=== PATIENT | female | born 1980 | race Caucasian/White ===

== ENCOUNTER 2017-06-16 22:34 | Inpatient (IN) | payer MEDICAID ==
--- NOTE | 2017-06-16 23:01 | ED Physician Chart ---
ED Chief Complaint/HPI - Patient Information Date Seen:: 06/16/17 Time Seen:: 22:53 Chief Complaint:: Infected kidney stone History of Present Illness:: 36 yo female was hospitalized for infected left kidney stones at [facility] receiving IV antibiotics (per patient, Rocephin) qd for 4 days. However , patient left AMA this afternoon because she wanted to take care of her dog at home. She presented to ER to try to receive additional treatment with antibiotics. Her initial symptoms of fever, b/l flank pain, urinary frequency, urgency and burning sensation had improved after the treatment. She currently still has urinary burning sensation and left flank pain. Allergies:: Allergies Allergy/AdvReac Type Severity Reaction Status Date / Time Sulfa (Sulfonamide Allergy Verified 08/14/15 00:06 Antibiotics) Vitals:: Vital Signs - 8 hr 06/16/17 22:40 Temp 98.6 F HR 100 RR 18 BP 140/95 O2 Sat % 98 ED Review of Systems - Review of Systems General/Constitutional: Fever, Chills Skin: No skin lesions Head: Headache Eyes: No pain ENT: No nasal drainage Neck: No neck pain Cardio Vascular: No chest pain Pulmonary: No SOB GI: Nausea, No vomiting G/U: Dysuria, Frequency Musculoskeletal: No bone or joint pain Neurological: No focal symptoms ED Past Medical History - Past Medical History Past Medical History: CAD Social History: Smoker, No Alcohol, Illicit Drug Use (marijuana) Surgical History: , other (left ureter stent for kidney stones, lithotripsy) Family Medical History - Family Member Mother History Unknown: Yes Ethnicity: Non- Living Status: Still Living Hx Family Cancer: No Hx Family Coronary Artery Disease: No Hx Family Congestive Heart Failure: No Hx Family Hypertension: No Hx Family Stroke: No Hx Family Diabetes: No Hx Family Seizures: No Hx Family Dementia: No Hx Family AIDS: No Hx Family HIV: No Hx Family COPD: No Hx Family Hepatitis: No Hx Family Psychiatric Problems: No Hx Family Tuberculosis: No ED Physical Exam - Physical Examination General/Constitutional: Awake Head: Atraumatic Eyes: PERRL Skin: No skin lesions ENMT: Nasal exam nl Neck: No nuchal rigidity Respiratory: No Wheeze/Rhonchi/Rales Cardio Vascular: RRR, No murmur, gallop, rubs, NL S1 S2 Other GI comments:: LLQ tenderness Other comments:: B/L CVA tenderness Neuro/Psych: No focal deficits ED Labs/Radiology/EKG Results - Lab Results Results: Laboratory Last Values WBC 7.9 Th/cmm (4.8-10.8) 06/16/17 23:38 RBC 4.09 Mil/cmm (3.80-5.10) 06/16/17 23:38 Hgb 12.3 gm/dL (12-16) 06/16/17 23:38 Hct 36.2 % (41.0-60) L 06/16/17 23:38 MCV 88.6 fl (81-100) 06/16/17 23:38 MCH 30.2 pg (27.0-31.0) 06/16/17 23:38 MCHC Differential 34.0 pg (28.0-36.0) 06/16/17 23:38 RDW 12.3 % (11.5-20.0) 06/16/17 23:38 Plt Count 227 Th/cmm (150-400) 06/16/17 23:38 MPV 7.5 fl 06/16/17 23:38 Neutrophils % 78.9 % (40.0-80.0) 06/16/17 23:38 Lymphocytes % 14.8 % (20.0-50.0) L 06/16/17 23:38 Monocytes % 4.9 % (2.0-10.0) 06/16/17 23:38 Eosinophils % 1.1 % (0.0-5.0) 06/16/17 23:38 Basophils % 0.3 % (0.0-2.0) 06/16/17 23:38 PT 8.9 SECONDS (9.5-11.5) L 06/16/17 23:38 INR 0.90 (0.5-1.4) 06/16/17 23:38 PTT (Actin FS) 24.6 SECONDS (26.0-38.0) L 06/16/17 23:38 Sodium 133 mEq/L (136-145) L 06/16/17 23:38 Potassium 4.3 mEq/L (3.5-5.1) 06/16/17 23:38 Chloride 102 mEq/L (98-107) 06/16/17 23:38 BUN 14 mg/dL (7-25) 06/16/17 23:38 Creatinine 0.9 mg/dL (0.6-1.2) 06/16/17 23:38 Est GFR ( Amer) > 60.0 ml/min (>90) 06/16/17 23:38 Est GFR (Non-Af Amer) > 60.0 ml/min 06/16/17 23:38 BUN/Creatinine Ratio 15.6 06/16/17 23:38 Glucose 95 mg/dL (70-105) 06/16/17 23:38 Calcium 10.0 mg/dL (8.6-10.3) 06/16/17 23:38 Total Bilirubin 0.2 mg/dL (0.3-1.0) L 06/16/17 23:38 AST 42 U/L (13-39) H 06/16/17 23:38 ALT 53 U/L (7-52) H 06/16/17 23:38 Alkaline Phosphatase 48 U/L (34-104) 06/16/17 23:38 Total Protein 7.6 gm/dL (6.0-8.3) 06/16/17 23:38 Albumin 4.1 gm/dL (3.7-5.3) 06/16/17 23:38 Globulin 3.5 gm/dL 06/16/17 23:38 Albumin/Globulin Ratio 1.2 (1.0-1.8) 06/16/17 23:38 Urine Source RANDOM 06/16/17 23:30 Urine Color YELLOW 06/16/17 23:30 Urine Clarity HAZY (CLEAR) 06/16/17 23:30 Urine pH 7.0 (4.6 - 8.0) 06/16/17 23:[address] [place] <= 1.005 (1.005-1.030) 06/16/17 23:30 Urine Protein NEGATIVE mg/dL (NEGATIVE) 06/16/17 23:30 Urine Glucose (UA) NEGATIVE mg/dL (NEGATIVE) 06/16/17 23:30 Urine Ketones NEGATIVE mg/dL (NEGATIVE) 06/16/17 23:30 Urine Blood SMALL (NEGATIVE) H 06/16/17 23:30 Urine Nitrate NEGATIVE (NEGATIVE) 06/16/17 23:30 Urine Bilirubin NEGATIVE (NEGATIVE) 04/24/18 23:30 Urine Urobilinogen 0.2 E.U./dL (0.2 - 1.0) 06/16/17 23:30 Ur Leukocyte Esterase LARGE (NEGATIVE) H 06/16/17 23:30 Urine RBC 0-2 /hpf (0-5) 06/16/17 23:30 Urine WBC 10-25 /hpf (0-5) H 06/16/17 23:30 Ur Epithelial Cells MODERATE /lpf (FEW) 06/16/17 23:30 Urine Bacteria FEW /hpf (NONE SEEN) 06/16/17 23:30 Urine Opiates Screen POSITIVE (NEGATIVE) H 06/16/17 23:30 Urine Methadone Screen NEGATIVE (NEGATIVE) 06/16/17 23:30 Ur Barbiturates Screen NEGATIVE (NEGATIVE) 06/16/17 23:30 Ur Tricyclics Screen NEGATIVE (NEGATIVE) 06/16/17 23:30 Ur Phencyclidine Scrn NEGATIVE (NEGATIVE) 06/16/17 23:30 Amphetamines Screen POSITIVE (NEGATIVE) H 06/16/17 23:30 U Methamphetamines Scrn POSITIVE (NEGATIVE) H 06/16/17 23:30 U Benzodiazepines Scrn NEGATIVE (NEGATIVE) 06/16/17 23:30 U Cocaine Metab Screen NEGATIVE (NEGATIVE) 06/16/17 23:30 U Cannabinoids Screen POSITIVE (NEGATIVE) H 06/16/17 23:30 - Radiology Results Results: Renal u/s: left kidney multiple stones, largest 1/5cm and multiple cysts, largest 3cm, hydronephrosis, bladder wall thickness indicating cystitis. ED Assessment - Assessment General Assessment: Left kidney stones Pyelonephritis Cystitis Substance abuse Assessment/Comments:: CBC, CMP, UA, urine drug screen Renal u/s NS 1L IV bolus Levaquin 750mg IV x 1 Admit to med surg ED Septic Shock - . Is Septic Shock (SBP<90, OR Lactate>4 mmol\L) present?: No - <6hrs of presentation: Vital Signs: Vital Signs - 8 hr 06/16/17 22:40 Temp 98.6 F HR 100 RR 18 BP 140/95 O2 Sat % 98 ED Reassessment (Disposition) - Reassessment Reassessment Condition:: Improved - Patient Disposition Discharge/Transfer:: Acute Care w/in this hosp Admitting Medical Physician:: Juan David Haq ED Discharge Plan - Patient Disposition Admit/Discharge/Transfer: Acute Care w/in this hosp
[2017-06-16 23:45] LABS: % BASOPHILS 0.3 % (0.0-2.0); % EOSINOPHILS 1.1 % (0.0-5.0); % LYMPHOCYTES 14.8 % (20.0-50.0); % MONOCYTES 4.9 % (2.0-10.0); % NEUTROPHILS 78.9 % (40.0-80.0); EOSINOPHILE ABSOLUTE 0.1 Th/cmm (0.1-0.4); HEMATOCRIT 36.2 % (41.0-60); HEMOGLOBIN 12.3 gm/dL (12-16); LYMPHOCYTE ABSOLUTE 1.2 Th/cmm (1.5-3.0); MEAN CELL VOLUME 88.6 fl (81-100); MEAN CORPUSCULAR HEMOGLOBIN 30.2 pg (27.0-31.0); MEAN PLATELET VOLUME 7.5 fl; MONOCYTE ABSOLUTE 0.4 Th/cmm (0.3-1.0); NEUTROPHILE ABSOLUTE 6.2 Th/cmm (1.8-8.0); PLATELET COUNT 227 Th/cmm (150-400); RED BLOOD COUNT 4.09 Mil/cmm (3.80-5.10); RED CELL DISTRIBUTION WIDTH 12.3 % (11.5-20.0); WHITE BLOOD COUNT 7.9 Th/cmm (4.8-10.8)
[2017-06-16 23:47] LABS: URINE MICROSCOPIC INDICATED? YES; URINE SOURCE RANDOM
[2017-06-16 23:52] LABS: URINE BILIRUBIN NEGATIVE (NEGATIVE); URINE BLOOD SMALL (NEGATIVE); URINE GLUCOSE (UA) NEGATIVE (NEGATIVE); URINE KETONE NEGATIVE (NEGATIVE); URINE LEUKOCYTE ESTERASE LARGE (NEGATIVE); URINE NITRATE NEGATIVE (NEGATIVE); URINE PROTEIN NEGATIVE (NEGATIVE); URINE UROBILINOGEN 0.2 E.U./dL (0.2 - 1.0)
[2017-06-16 23:56] LABS: URINE CLARITY HAZY (CLEAR); URINE COLOR YELLOW
[2017-06-17] LABS: PROTHROMBIN TIME (TEST) 8.9 SECONDS (9.5-11.5)
[2017-06-17 00:02] LABS: ALB/GLOB RATIO 1.2 (1.0-1.8); ALBUMIN 4.1 gm/dL (3.7-5.3); ALKALINE PHOSPHATASE 48 U/L (34-104); BILIRUBIN,TOTAL 0.2 mg/dL (0.3-1.0); BUN - UREA NITROGEN 14 mg/dL (7-25); CHLORIDE 102 mEq/L (98-107); CREATININE - SERUM 0.9 mg/dL (0.6-1.2); GFR AFRICAN-AMERICAN > 60.0 ml/min (>90); GFR NON AFRICAN-AMERICAN > 60.0 ml/min; GLUCOSE 95 mg/dL (70-105); POTASSIUM SERUM 4.3 mEq/L (3.5-5.1); SGOT 42 U/L (13-39); SGPT/ALT 53 U/L (7-52); SODIUM SERUM 133 mEq/L (136-145); TOTAL PROTEIN,SERUM 7.6 gm/dL (6.0-8.3)
[2017-06-17 00:03] LABS: URINE BACTERIA FEW /hpf (NONE SEEN); URINE EPITHELIAL CELLS MODERATE /lpf (FEW); URINE RBC 0-2 /hpf (0-5)
[2017-06-17 00:05] LABS: INR 0.9 (0.5-1.4)
[2017-06-17 00:34] LABS: AMPHETAMINE URINE POSITIVE (NEGATIVE); BARBITURATES URINE NEGATIVE (NEGATIVE); COCAINE METABOLITE QUAL URINE NEGATIVE (NEGATIVE); PHENCYCLIDINE (PCP) URINE NEGATIVE (NEGATIVE)
[2017-06-17 00:35] LABS: BENZODIAZEPINES QUAL URINE NEGATIVE (NEGATIVE); CANNABINOID THC POSITIVE (NEGATIVE); METHADONE URINE NEGATIVE (NEGATIVE); METHAMPHETAMINES QUAL URINE POSITIVE (NEGATIVE); OPIATES (MORPHINE) QUAL. URINE POSITIVE (NEGATIVE); TRICYCLICS (TCA) QUAL. URINE NEGATIVE (NEGATIVE)
[2017-06-17] MEDS ORDERED: Sodium Chloride 0.9% 1,000 ML IV ONE (00:41)
[2017-06-17] MEDS ORDERED: Levofloxacin 750mg/150mL 750 MG/150 ML BAG IV ONE ×2 (01:06→01:13)
[2017-06-17 02:02] LABS: ANION GAP 13.4 (7.0-16.0); CARBON DIOXIDE 21.9 mEq/L (21.0-31.0)
[2017-06-17] MEDS ORDERED: D5-0.45NS 1,000 ML IV SCH (03:45)
[2017-06-17] MEDS ORDERED: Morphine Sulfate 4 mg/mL 1mL Syr IV PRN (04:15)
[2017-06-17] MEDS: cefTRIAXone 1 GM in Sodium Chloride 0.9% 50 ML IV SCH (04:47)
--- NOTE | 2017-06-17 07:49 | Diagnostic Imaging Report ---
Renal ultrasound HISTORY: Hydronephrosis. COMPARISON: None Technique: Sonography of the kidneys and urinary bladder was performed in multiple planes. FINDINGS: The right kidney measures 13.1 x 4.6 cm. No evidence of focal lesions or hydronephrosis. The left kidney measures 11.4 x 4.5 cm. There is suggestion of left hydronephrosis and possible left-sided parapelvic cysts. Left renal echogenic foci are noted. There is mild urinary bladder wall thickening. No evidence of elevated postresidual bladder davey. IMPRESSION: Mild to moderate left hydronephrosis suspected with possible additional left parapelvic cysts. Recommend further assessment with CT exam. Left renal stone suspected. Again CT would further clarify. Mild prominence of the urinary bladder wall, inflammatory process cannot be excluded.
[2017-06-17 10:32] LABS: % EOSINOPHILS 3.2 % (0.0-5.0); % LYMPHOCYTES 21.5 % (20.0-50.0); % MONOCYTES 8.3 % (2.0-10.0); BASOPHILE ABSOLUTE 0.1 Th/cumm (0-0.2); EOSINOPHILE ABSOLUTE 0.2 Th/cmm (0.1-0.4); HEMATOCRIT 37.7 % (41.0-60); HEMOGLOBIN 12.8 gm/dL (12-16); LYMPHOCYTE ABSOLUTE 1.2 Th/cmm (1.5-3.0); MEAN CELL VOLUME 87.8 fl (81-100); MEAN CORPUSCULAR HEMOGLOBIN 29.8 pg (27.0-31.0); MEAN CORPUSCULAR HGB CONC 33.9 pg (28.0-36.0); MEAN PLATELET VOLUME 7.4 fl; MONOCYTE ABSOLUTE 0.4 Th/cmm (0.3-1.0); NEUTROPHILE ABSOLUTE 3.5 Th/cmm (1.8-8.0); PLATELET COUNT 236 Th/cmm (150-400); RED BLOOD COUNT 4.29 Mil/cmm (3.80-5.10); RED CELL DISTRIBUTION WIDTH 12.5 % (11.5-20.0); WHITE BLOOD COUNT 5.4 Th/cmm (4.8-10.8)
[2017-06-17 10:46] LABS: INR 0.93 (0.5-1.4); PROTHROMBIN TIME (TEST) 9.7 SECONDS (9.5-11.5)
--- NOTE | 2017-06-17 12:09 | Diagnostic Imaging Report ---
CHEST X-RAY: AP view INDICATION: pain COMPARISON: None FINDINGS: There is no focal consolidation or pleural effusions The heart is normal in size. The osseous structures demonstrate no acute abnormalities. IMPRESSION: No acute cardiopulmonary disease.
--- NOTE | 2017-06-17 12:10 | Diagnostic Imaging Report ---
KUB single view HISTORY: Left kidney stones COMPARISON: Renal ultrasound 06/16/2017 FINDINGS: Multiple calcifications are seen along the left upper quadrant. There is extensive stool throughout the colon with gas-filled loops of bowel. The osseous structures are intact. IMPRESSION: Multiple left upper quadrant calcifications most front office representative of extensive left-sided kidney stones. Consider further assessment of these findings with CT examination Copious stool and likely constipation.
--- NOTE | 2017-06-17 13:20 | Consultation ---
DATE OF CONSULTATION: 06/17/2017 UROLOGY CONSULTATION HISTORY OF PRESENT ILLNESS: The patient is a 36-year-old, admitted through the Emergency Room for left flank pain and previous history of fever, frequency and urgency, treated at [facility] for 4 days as an inpatient. She left that hospital to take care for her dog and then came back here for ongoing treatment. She continued to have some dysuria, but no nausea, vomiting, or fever after admission here. She has had kidney stones since age 9 according to her for which she has had multiple lithotripsies and stent placements. She was also seen at [facility] prior to [facility] from where she was transferred to [facility] for insurance purposes. PAST SURGICAL HISTORY: C-sections besides lithotripsies that she cannot remember the details about. HOME MEDICATIONS: Claims to take nothing for blood pressure, diabetes, or any other significant medical problems. She was taking amoxicillin and doxycycline and Vicodin given from the other hospital for pain and infection control. ALLERGIES: SULFA. REVIEW OF SYSTEMS: Fevers have subsided. Nausea, vomiting also gone. Flank pain persists. No diarrhea or vomiting. No chest pain, coughing, or shortness of breath. Denied sore throat. Burning in the urine remains without any hematuria. No skin or joint problems. SOCIAL HISTORY: She is a smoker, uses marijuana at home. Urine screen shows multiple drugs including amphetamines. PHYSICAL EXAMINATION: GENERAL: On exam, she is awake, alert, oriented. VITAL SIGNS: Temperature 97.5, heart rate 93, blood pressure 136/80. HEAD AND NECK: Normocephalic. Trachea central. Pupils equal and reactive. No jaundice. Thyroid and lymph nodes not palpable. Carotid bruit absent. CHEST: Symmetrical. LUNGS: Clear. No rales or rhonchi. HEART: Sounds normal in sinus rhythm, no murmur. ABDOMEN: Soft, mildly tender in the left upper quadrant and left flank on percussion. No masses or hernia. EXTREMITIES: No edema or lymphadenopathy. NEUROLOGIC: Nonfocal. Moves all 4 limbs. LABS: Urine drug screen positive for opiates, amphetamines, and cannabinoids. Urinalysis showed large amount of leukocyte esterase, 10-25 white cells, moderate amount of epithelial cells. Chemistry: Sodium 133, BUN 14, creatinine 0.9. AST and ALT mildly elevated only 42 and 53. PT and PTT normal. White count 7.9, hemoglobin 12.3, and platelets 227. Ultrasound of the kidneys shows multiple stones in the left kidney with [id number] hydronephrosis. Thus, parapelvic cysts as well, which may be confused with hydronephrosis at times. IMPRESSION: 1. Chronic stone disease. 2. Acute onset with possible obstruction from stone that is passing and is held up in the ureter. 3. Urinary tract infection. 4. Possible pyelonephritis. PLAN: Aggressive hydration, Flomax, Lasix, ambulation, review of records from [facility] and possibly a stent insertion if indicated. Meanwhile, she continues on antibiotics, namely ceftriaxone and Levaquin. [facility]# [id number]
[2017-06-17] MEDS ORDERED: HYDROmorphone 1 mg/mL 1mL Syr IVP PRN (14:24)
[2017-06-17] MEDS ORDERED: HYDROmorphone 2 mg/mL 1mL Vial IVP PRN (15:36)
[2017-06-17] MEDS: HYDROmorphone 2 mg/mL 1mL Vial IVP PRN (16:18)
--- NOTE | 2017-06-17 22:23 | History & Physical ---
ADMIT DATE: 06/17/2017 HISTORY OF PRESENT ILLNESS: The patient is 36-year-old female who came to the Emergency Room complaining of severe left flank pain, fever, frequency of urination, and was treated earlier at [facility] 4 days ago as an inpatient. The patient was sent home and the patient had dysuria and the patient was found to have kidney stones and was admitted. The patient has had C-sections in the past and lithotripsies, she cannot remember. HOME MEDICATION: See the medication reconciliation sheet. ALLERGIES: To SULFA. REVIEW OF SYSTEMS: Basically has fever, nausea, vomiting, and severe left flank pain. SOCIAL HISTORY: Smoker, uses marijuana. PHYSICAL EXAMINATION: HEAD: Normal. ENT: Normal. NECK: Supple, nontender. LUNGS: Bilaterally clear. CARDIOVASCULAR SYSTEM: S1, S2 heard. ABDOMEN: Soft. Bowel sounds are heard. CENTRAL NERVOUS SYSTEM: Grossly normal. IMAGING: Ultrasound showed [id number] hydronephrosis. DIAGNOSES: Chronic kidney disease, chronic stone disease with renal stones, kidney stones, urinary tract infection, pyelonephritis, status post . PLAN: The patient is being admitted and I will have Dr. Gould, Urology, to consult, and I will follow the patient. JOB# [id number]
[2017-06-18] MEDS: cefTRIAXone 1 GM in Sodium Chloride 0.9% 50 ML IV SCH (05:17)
[2017-06-18 06:13] LABS: % BASOPHILS 1.1 % (0.0-2.0); % EOSINOPHILS 4.8 % (0.0-5.0); % LYMPHOCYTES 29.5 % (20.0-50.0); % MONOCYTES 6.1 % (2.0-10.0); % NEUTROPHILS 58.5 % (40.0-80.0); BASOPHILE ABSOLUTE 0.1 Th/cumm (0-0.2); EOSINOPHILE ABSOLUTE 0.3 Th/cmm (0.1-0.4); HEMATOCRIT 38.2 % (41.0-60); HEMOGLOBIN 12.6 gm/dL (12-16); LYMPHOCYTE ABSOLUTE 1.7 Th/cmm (1.5-3.0); MEAN CELL VOLUME 89.2 fl (81-100); MEAN CORPUSCULAR HEMOGLOBIN 29.4 pg (27.0-31.0); MEAN PLATELET VOLUME 7.4 fl; MONOCYTE ABSOLUTE 0.4 Th/cmm (0.3-1.0); NEUTROPHILE ABSOLUTE 3.3 Th/cmm (1.8-8.0); PLATELET COUNT 235 Th/cmm (150-400); RED BLOOD COUNT 4.29 Mil/cmm (3.80-5.10); RED CELL DISTRIBUTION WIDTH 12.2 % (11.5-20.0); WHITE BLOOD COUNT 5.8 Th/cmm (4.8-10.8)
[2017-06-18 06:19] LABS: BUN - UREA NITROGEN 14 mg/dL (7-25); CALCIUM SERUM 9.4 mg/dL (8.6-10.3); CARBON DIOXIDE 25.1 mEq/L (21.0-31.0); CHLORIDE 103 mEq/L (98-107); CREATININE - SERUM 0.8 mg/dL (0.6-1.2); GFR AFRICAN-AMERICAN > 60.0 ml/min (>90); GFR NON AFRICAN-AMERICAN > 60.0 ml/min; GLUCOSE 99 mg/dL (70-105); POTASSIUM SERUM 4.1 mEq/L (3.5-5.1); SODIUM SERUM 133 mEq/L (136-145)
[2017-06-18 06:20] LABS: INR 0.91 (0.5-1.4); PROTHROMBIN TIME (TEST) 9.5 SECONDS (9.5-11.5)
[2017-06-18] MEDS ORDERED: IOHEXOL 300mgI/mL 50 ML VIAL ONE (07:18)
[2017-06-18] MEDS: HYDROmorphone 2 mg/mL 1mL Vial IVP PRN ×4 (07:56→21:53)
--- NOTE | 2017-06-18 08:29 | Diagnostic Imaging Report ---
CHEST X-RAY: AP view INDICATION: Shortness of breath COMPARISON: 06/17/2017 FINDINGS: There is no focal consolidation or pleural effusions The heart is normal in size. The osseous structures demonstrate no acute abnormalities. IMPRESSION: No acute cardiopulmonary disease.
--- NOTE | 2017-06-18 08:50 | General Progress Note ---
Subjective - Review of Systems Events since last encounter: c/o flank pain in no distress Objective - Results Result Diagrams: 06/18/17 05:46 06/18/17 05:46 Recent Labs: Laboratory Last Values WBC 5.8 Th/cmm (4.8-10.8) 06/18/17 05:46 RBC 4.29 Mil/cmm (3.80-5.10) 06/18/17 05:46 Hgb 12.6 gm/dL (12-16) 06/18/17 05:46 Hct 38.2 % (41.0-60) L 06/18/17 05:46 MCV 89.2 fl (81-100) 06/18/17 05:46 MCH 29.4 pg (27.0-31.0) 06/18/17 05:46 MCHC Differential 33.0 pg (28.0-36.0) 06/18/17 05:46 RDW 12.2 % (11.5-20.0) 06/18/17 05:46 Plt Count 235 Th/cmm (150-400) 06/18/17 05:46 MPV 7.4 fl 06/18/17 05:46 Neutrophils % 58.5 % (40.0-80.0) 06/18/17 05:46 Lymphocytes % 29.5 % (20.0-50.0) 06/18/17 05:46 Monocytes % 6.1 % (2.0-10.0) 06/18/17 05:46 Eosinophils % 4.8 % (0.0-5.0) 06/18/17 05:46 Basophils % 1.1 % (0.0-2.0) 06/18/17 05:46 PT 9.5 SECONDS (9.5-11.5) 06/18/17 05:46 INR 0.91 (0.5-1.4) 06/18/17 05:46 PTT (Actin FS) 25.6 SECONDS (26.0-38.0) L 06/17/17 10:22 Sodium 133 mEq/L (136-145) L 06/18/17 05:46 Potassium 4.1 mEq/L (3.5-5.1) 06/18/17 05:46 Chloride 103 mEq/L (98-107) 06/18/17 05:46 Carbon Dioxide 25.1 mEq/L (21.0-31.0) 06/18/17 05:46 Anion Gap 9.0 (7.0-16.0) 06/18/17 05:46 BUN 14 mg/dL (7-25) 06/18/17 05:46 Creatinine 0.8 mg/dL (0.6-1.2) 06/18/17 05:46 Est GFR ( Amer) > 60.0 ml/min (>90) 06/18/17 05:46 Est GFR (Non-Af Amer) > 60.0 ml/min 06/18/17 05:46 BUN/Creatinine Ratio 17.5 06/18/17 05:46 Glucose 99 mg/dL (70-105) 06/18/17 05:46 Calcium 9.4 mg/dL (8.6-10.3) 06/18/17 05:46 Total Bilirubin 0.2 mg/dL (0.3-1.0) L 06/16/17 23:38 AST 42 U/L (13-39) H 06/16/17 23:38 ALT 53 U/L (7-52) H 06/16/17 23:38 Alkaline Phosphatase 48 U/L (34-104) 06/16/17 23:38 B-Natriuretic Peptide 46.5 pg/mL (5.0-100.0) 06/17/17 10:22 Total Protein 7.6 gm/dL (6.0-8.3) 06/16/17 23:38 Albumin 4.1 gm/dL (3.7-5.3) 06/16/17 23:38 Globulin 3.5 gm/dL 06/16/17 23:38 Albumin/Globulin Ratio 1.2 (1.0-1.8) 06/16/17 23:38 Urine Source RANDOM 06/16/17 23:30 Urine Color YELLOW 06/16/17 23:30 Urine Clarity HAZY (CLEAR) 06/16/17 23:30 Urine pH 7.0 (4.6 - 8.0) 06/16/17 23:30 Ur Specific [place] <= 1.005 (1.005-1.030) 06/16/17 23:30 Urine Protein NEGATIVE mg/dL (NEGATIVE) 06/16/17 23:30 Urine Glucose (UA) NEGATIVE mg/dL (NEGATIVE) 06/16/17 23:30 Urine Ketones NEGATIVE mg/dL (NEGATIVE) 06/16/17 23:30 Urine Blood SMALL (NEGATIVE) H 06/16/17 23:30 Urine Nitrate NEGATIVE (NEGATIVE) 06/16/17 23:30 Urine Bilirubin NEGATIVE (NEGATIVE) 06/16/17 23:30 Urine Urobilinogen 0.2 E.U./dL (0.2 - 1.0) 06/16/17 23:30 Ur Leukocyte Esterase LARGE (NEGATIVE) H 06/16/17 23:30 Urine RBC 0-2 /hpf (0-5) 06/16/17 23:30 Urine WBC 10-25 /hpf (0-5) H 06/16/17 23:30 Ur Epithelial Cells MODERATE /lpf (FEW) 06/16/17 23:30 Urine Bacteria FEW /hpf (NONE SEEN) 06/16/17 23:30 Urine Test NEGATIVE 06/17/17 10:58 Urine Opiates Screen POSITIVE (NEGATIVE) H 06/16/17 23:30 Urine Methadone Screen NEGATIVE (NEGATIVE) 06/16/17 23:30 Ur Barbiturates Screen NEGATIVE (NEGATIVE) 06/16/17 23:30 Ur Tricyclics Screen NEGATIVE (NEGATIVE) 06/16/17 23:30 Ur Phencyclidine Scrn NEGATIVE (NEGATIVE) 06/16/17 23:30 Amphetamines Screen POSITIVE (NEGATIVE) H 06/16/17 23:30 U Methamphetamines Scrn POSITIVE (NEGATIVE) H 06/16/17 23:30 U Benzodiazepines Scrn NEGATIVE (NEGATIVE) 06/16/17 23:30 U Cocaine Metab Screen NEGATIVE (NEGATIVE) 06/16/17 23:30 U Cannabinoids Screen POSITIVE (NEGATIVE) H 06/16/17 23:30 - Physical Exam Vitals and I&O: Vital Signs Temp 97.6 F 06/18/17 04:00 Pulse 88 06/18/17 04:00 Resp 17 06/18/17 04:00 BP 122/78 06/18/17 04:00 Pulse Ox 100 06/18/17 04:00 Intake & Output 06/17/17 06/18/17 06/18/17 18:59 06:59 18:59 Intake Total 1005 Balance 1005 Weight (lbs) 59.165 kg 60.328 kg Intake: Intake, IV Amount 1005 Potassium Chloride 10 meq 1005 In Sodium Chloride 0.45% 1,000 ml @ 175 mls/hr IV .Q5H45M [facility] Rx#: [id number] Other: # Voids 2 4 Weight Source Bedscale Bedscale Active Medications: Current Medications Acetaminophen (Tylenol) 650 mg PO Q4H PRN PRN Reason: Pain or Fever >101 Stop: 08/16/17 03:44 Acetaminophen/Hydrocodone Bitart ([place] 5mg/325mg) 1 tab PO HS PRN PRN Reason: Pain Stop: 08/16/17 21:33 Hydromorphone HCl (Dilaudid) 1 mg IVP Q3HR PRN PRN Reason: Pain (Moderate) Stop: 08/16/17 15:35 Last Admin: 06/18/17 00:05 Dose: 1 mg Hydromorphone HCl (Dilaudid) 2 mg IVP Q3HR PRN PRN Reason: Pain (Severe) Stop: 08/16/17 15:36 Last Admin: 06/18/17 07:56 Dose: 2 mg Ceftriaxone Sodium 1 gm/ (Sodium Chloride) 50 mls @ 100 mls/hr IV Q24HR [facility] Stop: 08/16/17 04:59 Last Admin: 06/18/17 05:17 Dose: 100 mls/hr Potassium Chloride 10 meq/ (Sodium Chloride) 1,005 mls @ 175 mls/hr IV .Q5H45M [facility] Stop: 08/16/17 10:14 Last Admin: 06/18/17 02:08 Dose: 175 mls/hr Ondansetron HCl (Zofran) 4 mg IV Q4H PRN PRN Reason: Nausea / Vomiting Stop: 08/16/17 03:42 Last Admin: 06/18/17 05:56 Dose: 4 mg - Procedures Procedures: Procedures Procedure Code Date DELIVERY 64494 08/16/01 DX PROC FETUS/AMNION NEC 75.35 08/16/01 DX ULTRASOUND-GRAV UTER 88.78 07/29/01 CONTRACT STRESS TEST 49329 08/16/01 MONITORING NOS 75.34 08/14/07 NON-STRESS TEST 58642 08/14/07 INJECT/INFUSE NEC 99.29 12/01/09 LOW CERVICAL 74.1 08/16/01 MATERNITY CARE PROCEDURE 45216 08/16/01 OB US LIMITED FETUS(S) 90188 07/29/01
[2017-06-18] MEDS ORDERED: Propofol **SURGERY USE ONLY** 20 ML IV ONE (10:09)
[2017-06-18] MEDS ORDERED: Lidocaine 2% Vial 20 mL Vial ONE (10:10)
[2017-06-18] MEDS ORDERED: fentaNYL Citrate 100 mcg/2mL Vial ONE (10:45)
[2017-06-18] MEDS ORDERED: fentaNYL Citrate 100 mcg/2mL Vial IVP PRN (11:16)
--- NOTE | 2017-06-18 12:03 | Diagnostic Imaging Report ---
Fluoroscopy was utilized facilitation of cystoscopy and nephroureteral stent procedure. Please refer to the procedure report for complete details. The total fluoroscopic time was 1 minute and 21 seconds.
[2017-06-18] MEDS: Sodium Chloride 0.45% 1,000 ML IV SCH (18:10)
--- NOTE | 2017-06-18 19:53 | Operative Report ---
DATE OF SURGERY: 06/18/2017 PREOPERATIVE DIAGNOSES: Left hydronephrosis with stones and pyelonephritis. POSTOPERATIVE DIAGNOSES: Left hydronephrosis with stones, pyelonephritis and ureteropelvic junction obstruction. SURGEON: Suma Gould MD. NAME OF PROCEDURE: Cystoscopy, left retrograde pyelogram with injection of contrast and fluoroscopy and insertion of double-J stent, size 6 x 22. ANESTHESIA: General. INDICATION: The patient is a 36-year-old with multiple stones in the left kidney that have grown over the last few years and she has had few episodes of pyelonephritis. The most recent one treated initially at [facility] and then [facility] as of last year, presently. CT scan on this admission from [facility] shows increasing stone burden in the left kidney. No stones in the ureter, but hydronephrosis that was confirmed on ultrasound as well. KUB shows a lot of stones in the middle calyx system, like a partial staghorn. The patient has had multiple lithotripsies and stents over the last 20 years. FINDINGS: Cystoscopy is normal. Retrograde shows complete obstruction of the UPJ with a pinpoint opening over 1.5 cm, which is the cause of the hydronephrosis. Kidney is hydronephrotic, probably secondary to the UPJ obstruction. A 6 x 22 stent was placed through this obstructed ureteropelvic junction for drainage and prevention of repeated infections and obstruction. She will require treatment of the stones and UPJ obstruction simultaneously. DESCRIPTION OF PROCEDURE: The patient was brought to the operating room, prepped and draped in the dorsal lithotomy position after general anesthesia was induced. After dilating the urethra, the bladder was examined and a left orifice cannulated with injection of contrast at multiple levels to define the ureter, the UPJ and the kidney as well as possible. Finally, the UPJ obstruction was very well defined and a guidewire was passed through this obstruction without resistance and then a stent over it again without resistance until it was in satisfactory position to complete the procedure without blood loss or complication. [facility]# [id number]
[2017-06-19] MEDS: HYDROmorphone 2 mg/mL 1mL Vial IVP PRN ×5 (03:36→22:47)
[2017-06-19] MEDS: cefTRIAXone 1 GM in Sodium Chloride 0.9% 50 ML IV SCH (04:45)
[2017-06-19] MEDS: Sodium Chloride 0.45% 1,000 ML IV SCH (18:00)
--- NOTE | 2017-06-19 18:29 | General Progress Note ---
Objective - Results Result Diagrams: 06/18/17 05:46 06/18/17 05:46 Recent Labs: Laboratory Last Values WBC 5.8 Th/cmm (4.8-10.8) 06/18/17 05:46 RBC 4.29 Mil/cmm (3.80-5.10) 06/18/17 05:46 Hgb 12.6 gm/dL (12-16) 06/18/17 05:46 Hct 38.2 % (41.0-60) L 06/18/17 05:46 MCV 89.2 fl (81-100) 06/18/17 05:46 MCH 29.4 pg (27.0-31.0) 06/18/17 05:46 MCHC Differential 33.0 pg (28.0-36.0) 06/18/17 05:46 RDW 12.2 % (11.5-20.0) 06/18/17 05:46 Plt Count 235 Th/cmm (150-400) 06/18/17 05:46 MPV 7.4 fl 06/18/17 05:46 Neutrophils % 58.5 % (40.0-80.0) 06/18/17 05:46 Lymphocytes % 29.5 % (20.0-50.0) 06/18/17 05:46 Monocytes % 6.1 % (2.0-10.0) 06/18/17 05:46 Eosinophils % 4.8 % (0.0-5.0) 06/18/17 05:46 Basophils % 1.1 % (0.0-2.0) 06/18/17 05:46 PT 9.5 SECONDS (9.5-11.5) 06/18/17 05:46 INR 0.91 (0.5-1.4) 06/18/17 05:46 PTT (Actin FS) 25.6 SECONDS (26.0-38.0) L 06/17/17 10:22 Sodium 133 mEq/L (136-145) L 06/18/17 05:46 Potassium 4.1 mEq/L (3.5-5.1) 06/18/17 05:46 Chloride 103 mEq/L (98-107) 06/18/17 05:46 Carbon Dioxide 25.1 mEq/L (21.0-31.0) 06/18/17 05:46 Anion Gap 9.0 (7.0-16.0) 06/18/17 05:46 BUN 14 mg/dL (7-25) 06/18/17 05:46 Creatinine 0.8 mg/dL (0.6-1.2) 06/18/17 05:46 Est GFR ( Amer) > 60.0 ml/min (>90) 06/18/17 05:46 Est GFR (Non-Af Amer) > 60.0 ml/min 06/18/17 05:46 BUN/Creatinine Ratio 17.5 06/18/17 05:46 Glucose 99 mg/dL (70-105) 06/18/17 05:46 Calcium 9.4 mg/dL (8.6-10.3) 06/18/17 05:46 Total Bilirubin 0.2 mg/dL (0.3-1.0) L 06/16/17 23:38 AST 42 U/L (13-39) H 06/16/17 23:38 ALT 53 U/L (7-52) H 06/16/17 23:38 Alkaline Phosphatase 48 U/L (34-104) 06/16/17 23:38 B-Natriuretic Peptide 46.5 pg/mL (5.0-100.0) 06/17/17 10:22 Total Protein 7.6 gm/dL (6.0-8.3) 06/16/17 23:38 Albumin 4.1 gm/dL (3.7-5.3) 06/16/17 23:38 Globulin 3.5 gm/dL 06/16/17 23:38 Albumin/Globulin Ratio 1.2 (1.0-1.8) 06/16/17 23:38 Urine Source RANDOM 06/16/17 23:30 Urine Color YELLOW 06/16/17 23:30 Urine Clarity HAZY (CLEAR) 06/16/17 23:30 Urine pH 7.0 (4.6 - 8.0) 06/16/17 23:30 Ur Specific [place] <= 1.005 (1.005-1.030) 06/16/17 23:30 Urine Protein NEGATIVE mg/dL (NEGATIVE) 06/16/17 23:30 Urine Glucose (UA) NEGATIVE mg/dL (NEGATIVE) 06/16/17 23:30 Urine Ketones NEGATIVE mg/dL (NEGATIVE) 06/16/17 23:30 Urine Blood SMALL (NEGATIVE) H 06/16/17 23:30 Urine Nitrate NEGATIVE (NEGATIVE) 06/16/17 23:30 Urine Bilirubin NEGATIVE (NEGATIVE) 06/16/17 23:30 Urine Urobilinogen 0.2 E.U./dL (0.2 - 1.0) 06/16/17 23:30 Ur Leukocyte Esterase LARGE (NEGATIVE) H 06/16/17 23:30 Urine RBC 0-2 /hpf (0-5) 06/16/17 23:30 Urine WBC 10-25 /hpf (0-5) H 06/16/17 23:30 Ur Epithelial Cells MODERATE /lpf (FEW) 06/16/17 23:30 Urine Bacteria FEW /hpf (NONE SEEN) 06/16/17 23:30 Urine Test NEGATIVE 06/17/17 10:58 Urine Opiates Screen POSITIVE (NEGATIVE) H 06/16/17 23:30 Urine Methadone Screen NEGATIVE (NEGATIVE) 06/16/17 23:30 Ur Barbiturates Screen NEGATIVE (NEGATIVE) 06/16/17 23:30 Ur Tricyclics Screen NEGATIVE (NEGATIVE) 06/16/17 23:30 Ur Phencyclidine Scrn NEGATIVE (NEGATIVE) 06/16/17 23:30 Amphetamines Screen POSITIVE (NEGATIVE) H 06/16/17 23:30 U Methamphetamines Scrn POSITIVE (NEGATIVE) H 06/16/17 23:30 U Benzodiazepines Scrn NEGATIVE (NEGATIVE) 06/16/17 23:30 U Cocaine Metab Screen NEGATIVE (NEGATIVE) 06/16/17 23:30 U Cannabinoids Screen POSITIVE (NEGATIVE) H 06/16/17 23:30 - Physical Exam Vitals and I&O: Vital Signs Temp 98.1 F 06/19/17 15:40 Pulse 80 06/19/17 15:40 Resp 19 06/19/17 15:40 BP 122/80 06/19/17 15:40 Pulse Ox 97 06/19/17 15:40 Intake & Output 06/18/17 06/19/17 06/19/17 18:59 06:59 18:59 Intake Total 1005 50 1800 Balance 1005 50 1800 Weight (lbs) 60.328 kg 59.693 kg 59.693 kg Intake: Intake, IV Amount 1005 50 1000 Potassium Chloride 10 meq 1005 In Sodium Chloride 0.45% 1,000 ml @ 175 mls/hr IV .Q5H45M [facility] Rx#: [id number] Sodium Chloride 0.45% 1, 1000 000 ml @ 50 mls/hr IV . Q20H [facility] Rx#:[id number] cefTRIAXone 1 gm In 50 Sodium Chloride 0.9% 50 ml @ 100 mls/hr IV Q24HR [facility] Rx#:[id number] Oral 800 Other: # Voids 1 3 # Bowel Movements 0 Weight Source Bedscale Bedscale Bedscale Active Medications: Current Medications Acetaminophen (Tylenol) 650 mg PO Q4H PRN PRN Reason: Pain or Fever >101 Stop: 08/16/17 03:44 Acetaminophen/Hydrocodone Bitart ([place] 5mg/325mg) 1 tab PO HS PRN PRN Reason: Pain Stop: 08/16/17 21:33 Hydromorphone HCl (Dilaudid) 1 mg IVP Q3HR PRN PRN Reason: Pain (Moderate) Stop: 08/16/17 15:35 Last Admin: 06/18/17 00:05 Dose: 1 mg Hydromorphone HCl (Dilaudid) 2 mg IVP Q3HR PRN PRN Reason: Pain (Severe) Stop: 08/16/17 15:36 Last Admin: 06/19/17 17:57 Dose: 2 mg Ceftriaxone Sodium 1 gm/ (Sodium Chloride) 50 mls @ 100 mls/hr IV Q24HR [facility] Stop: 08/16/17 04:59 Last Infusion: 06/19/17 05:15 Dose: Infused Sodium Chloride (Nacl 0.45%) 1,000 mls @ 50 mls/hr IV .Q20H [facility] Stop: 08/17/17 16:15 Last Admin: 06/19/17 18:00 Dose: 50 mls/hr Mupirocin (Bactroban Oint) 1 appl NS BID [facility] Stop: 06/23/17 09:01 Last Admin: 06/19/17 16:21 Dose: 1 appl Ondansetron HCl (Zofran) 4 mg IV Q4H PRN PRN Reason: Nausea / Vomiting Stop: 08/16/17 03:42 Last Admin: 06/18/17 20:57 Dose: 4 mg - Procedures Procedures: Procedures Procedure Code Date DELIVERY 54053 08/16/01 CYSTOSCOPY 17658 06/17/17 DILATION OF BILATERAL URETERS WITH INTRALUMINAL DEVICE, ENDO [id number] 06/17/17 DX PROC FETUS/AMNION NEC 75.35 08/16/01 DX ULTRASOUND-GRAV UTER 88.78 07/29/01 CONTRACT STRESS TEST 35683 08/16/01 MONITORING NOS 75.34 08/14/07 NON-STRESS TEST 93521 08/14/07 INJECT/INFUSE NEC 99.29 12/01/09 LOW CERVICAL 74.1 08/16/01 MATERNITY CARE PROCEDURE 35122 08/16/01 OB US LIMITED FETUS(S) 76136 07/29/01
--- NOTE | 2017-06-19 21:06 | Progress Notes ---
DATE: 06/19/2017 The patient has pain after the procedure which is somewhat expected from the stent, but is otherwise hemodynamically stable and doing well. 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 This can be done by an open technique or the old fashion way versus a robotically conducted procedure with robotic skills. I discussed this with the showcase maker, who tells me that the patient has an [facility] association of [facility] physicians who will have to give approval for referral to a robotic center or to somebody who can do this procedure wide open technique including myself. The patient is presently stable enough to be discharged, but within 2-4 weeks she should have the definitive procedure to avoid longstanding stent related complications of infection, pain or incrustation, etc. This has been conveyed to the patient and the showcase maker and the nurses. JOB# [id number]
[2017-06-20] MEDS: cefTRIAXone 1 GM in Sodium Chloride 0.9% 50 ML IV SCH (04:59)
[2017-06-20] MEDS: HYDROmorphone 2 mg/mL 1mL Vial IVP PRN ×4 (06:54→20:42)
[2017-06-20] MEDS: Hydrocodone/APAP 5mg/325mg Tab PO PRN (08:38)
--- NOTE | 2017-06-20 13:47 | Progress Notes ---
DATE: 06/20/2017 SUBJECTIVE: The patient was seen in her room. Per the patient, she has some intermittent pain in the surgical sites, but the patient was already cleared by with the urologist postop cystoscopy with left retrograde pyelogram. OBJECTIVE: VITAL SIGNS: Temperature 98, heart rate 71, blood pressure 108/72, respiration of 18, 99% on room air. HEENT: Head is atraumatic and normocephalic. Eyes: Bilateral conjunctivae are clear. Bilateral pupils are equally round and reactive. NECK: Supple. No JVD. CARDIOVASCULAR: S1 and S2, without murmur. PULMONARY: Clear to auscultation. GASTROINTESTINAL: Soft and nontender without guarding. Positive bowel sounds. MUSCULOSKELETAL: No clubbing. No cyanosis noted. ASSESSMENT: 1. Chronic kidney disease. 2. Left hydronephrosis with pyelonephritis, status post cystoscopy and pyelogram. 3. Osteoarthritis. 4. Chronic pain syndrome. PLAN: We will keep the patient inpatient in med-surg unit. Treatment plans were discussed with the patient's nurse. Treatment plans were discussed with Dr. Haq. JOB# [id number]
[2017-06-20] MEDS: Sodium Chloride 0.45% 1,000 ML IV SCH (16:06)
--- NOTE | 2017-06-20 19:44 | Discharge Summary ---
DATE OF DISCHARGE: 06/20/2017 The patient is status post stent placement 2 days ago, but continues to have significant pain requiring opioid narcotics. I have explained to her the need to get off the narcotics for fear of addiction as the stent will have to stay for several days until a definitive operation of the UPJ obstruction in the left kidney. I then explained to her in great detail the problem with the left kidney, requiring either an open or robotic surgery to fix the obstruction and simultaneously remove the large kidney stones to salvage this kidney. This procedure can be done at [facility] or [facility] or [place] where robot is available. Her [facility] insurance association of physicians, I will have to refer her to one of these places to achieve to get this operation done. Meanwhile, she will have to have the stent to protect the kidney. When I tried to make her understand about the need to manage the pain and discomfort with Tylenol or ibuprofen or oxybutynin she got very upset and wants even heavier doses of narcotics to deal with this pain. I am unable to make her understand the problems related to her condition, which is somewhat complicated to deal with and the need for protection against opioid addiction. Hopefully, nurses and other attendings can talk to her and get the process going to get a proper referral for the operation. I can do the same operation by an open technique, but this may not be as noninvasive as a robotic procedure if it can be done. JOB# [id number]
[2017-06-21] MEDS: HYDROmorphone 2 mg/mL 1mL Vial IVP PRN ×3 (00:25→10:22)
[2017-06-21] MEDS: cefTRIAXone 1 GM in Sodium Chloride 0.9% 50 ML IV SCH (05:04)
[2017-06-21] MEDS: Sodium Chloride 0.45% 1,000 ML IV SCH (05:05)
[2017-06-21 06:00] LABS: ANION GAP 9.9 (7.0-16.0); BUN - UREA NITROGEN 18 mg/dL (7-25); CALCIUM SERUM 9.5 mg/dL (8.6-10.3); CARBON DIOXIDE 24.6 mEq/L (21.0-31.0); CHLORIDE 104 mEq/L (98-107); CREATININE - SERUM 0.8 mg/dL (0.6-1.2); GFR AFRICAN-AMERICAN > 60.0 ml/min (>90); GFR NON AFRICAN-AMERICAN > 60.0 ml/min; GLUCOSE 88 mg/dL (70-105); POTASSIUM SERUM 4.5 mEq/L (3.5-5.1); SODIUM SERUM 134 mEq/L (136-145)
--- NOTE | 2017-06-21 13:36 | Infectious Disease Prog Note ---
Infectious Disease Subjective - Review of Systems Service Date: 06/21/17 Subjective: Persistent complaints of the left-sided low back pain. There is no fever. The stent was placed in by Dr. Gould Infectious Disease Objective - Results Result Diagrams: 06/18/17 05:46 06/21/17 05:10 Recent Labs: Laboratory Last Values WBC 5.8 Th/cmm (4.8-10.8) 06/18/17 05:46 RBC 4.29 Mil/cmm (3.80-5.10) 06/18/17 05:46 Hgb 12.6 gm/dL (12-16) 06/18/17 05:46 Hct 38.2 % (41.0-60) L 06/18/17 05:46 MCV 89.2 fl (81-100) 06/18/17 05:46 MCH 29.4 pg (27.0-31.0) 06/18/17 05:46 MCHC Differential 33.0 pg (28.0-36.0) 06/18/17 05:46 RDW 12.2 % (11.5-20.0) 06/18/17 05:46 Plt Count 235 Th/cmm (150-400) 06/18/17 05:46 MPV 7.4 fl 06/18/17 05:46 Neutrophils % 58.5 % (40.0-80.0) 06/18/17 05:46 Lymphocytes % 29.5 % (20.0-50.0) 06/18/17 05:46 Monocytes % 6.1 % (2.0-10.0) 06/18/17 05:46 Eosinophils % 4.8 % (0.0-5.0) 06/18/17 05:46 Basophils % 1.1 % (0.0-2.0) 06/18/17 05:46 PT 9.5 SECONDS (9.5-11.5) 06/18/17 05:46 INR 0.91 (0.5-1.4) 06/18/17 05:46 PTT (Actin FS) 25.6 SECONDS (26.0-38.0) L 06/17/17 10:22 Sodium 134 mEq/L (136-145) L 06/21/17 05:10 Potassium 4.5 mEq/L (3.5-5.1) 06/21/17 05:10 Chloride 104 mEq/L (98-107) 06/21/17 05:10 Carbon Dioxide 24.6 mEq/L (21.0-31.0) 06/21/17 05:10 Anion Gap 9.9 (7.0-16.0) 06/21/17 05:10 BUN 18 mg/dL (7-25) 06/21/17 05:10 Creatinine 0.8 mg/dL (0.6-1.2) 06/21/17 05:10 Est GFR ( Amer) > 60.0 ml/min (>90) 06/21/17 05:10 Est GFR (Non-Af Amer) > 60.0 ml/min 06/21/17 05:10 BUN/Creatinine Ratio 22.5 06/21/17 05:10 Glucose 88 mg/dL (70-105) 06/21/17 05:10 Calcium 9.5 mg/dL (8.6-10.3) 06/21/17 05:10 Total Bilirubin 0.2 mg/dL (0.3-1.0) L 06/16/17 23:38 AST 42 U/L (13-39) H 06/16/17 23:38 ALT 53 U/L (7-52) H 06/16/17 23:38 Alkaline Phosphatase 48 U/L (34-104) 06/16/17 23:38 B-Natriuretic Peptide 46.5 pg/mL (5.0-100.0) 06/17/17 10:22 Total Protein 7.6 gm/dL (6.0-8.3) 06/16/17 23:38 Albumin 4.1 gm/dL (3.7-5.3) 06/16/17 23:38 Globulin 3.5 gm/dL 06/16/17 23:38 Albumin/Globulin Ratio 1.2 (1.0-1.8) 06/16/17 23:38 Urine Source RANDOM 06/16/17 23:30 Urine Color YELLOW 06/16/17 23:30 Urine Clarity HAZY (CLEAR) 06/16/17 23:30 Urine pH 7.0 (4.6 - 8.0) 06/16/17 23:30 Ur Specific [place] <= 1.005 (1.005-1.030) 06/16/17 23:30 Urine Protein NEGATIVE mg/dL (NEGATIVE) 06/16/17 23:30 Urine Glucose (UA) NEGATIVE mg/dL (NEGATIVE) 06/16/17 23:30 Urine Ketones NEGATIVE mg/dL (NEGATIVE) 06/16/17 23:30 Urine Blood SMALL (NEGATIVE) H 06/16/17 23:30 Urine Nitrate NEGATIVE (NEGATIVE) 06/16/17 23:30 Urine Bilirubin NEGATIVE (NEGATIVE) 06/16/17 23:30 Urine Urobilinogen 0.2 E.U./dL (0.2 - 1.0) 06/16/17 23:30 Ur Leukocyte Esterase LARGE (NEGATIVE) H 06/16/17 23:30 Urine RBC 0-2 /hpf (0-5) 06/16/17 23:30 Urine WBC 10-25 /hpf (0-5) H 06/16/17 23:30 Ur Epithelial Cells MODERATE /lpf (FEW) 06/16/17 23:30 Urine Bacteria FEW /hpf (NONE SEEN) 06/16/17 23:30 Urine Test NEGATIVE 06/17/17 10:58 Urine Opiates Screen POSITIVE (NEGATIVE) H 06/16/17 23:30 Urine Methadone Screen NEGATIVE (NEGATIVE) 06/16/17 23:30 Ur Barbiturates Screen NEGATIVE (NEGATIVE) 06/16/17 23:30 Ur Tricyclics Screen NEGATIVE (NEGATIVE) 06/16/17 23:30 Ur Phencyclidine Scrn NEGATIVE (NEGATIVE) 06/16/17 23:30 Amphetamines Screen POSITIVE (NEGATIVE) H 06/16/17 23:30 U Methamphetamines Scrn POSITIVE (NEGATIVE) H 06/16/17 23:30 U Benzodiazepines Scrn NEGATIVE (NEGATIVE) 06/16/17 23:30 U Cocaine Metab Screen NEGATIVE (NEGATIVE) 06/16/17 23:30 U Cannabinoids Screen POSITIVE (NEGATIVE) H 06/16/17 23:30 - Physical Exam Vitals and I&O: Vital Signs Temp 97.2 F 06/21/17 12:00 Pulse 73 06/21/17 12:00 Resp 18 06/21/17 12:00 BP 119/72 06/21/17 12:00 Pulse Ox 100 06/21/17 12:00 Intake & Output 06/20/17 06/21/17 06/21/17 18:59 06:59 18:59 Intake Total 1000 849.167 Balance 1000 849.167 Weight (lbs) 59.874 kg Intake: Intake, IV Amount 1000 649.167 Sodium Chloride 0.45% 1, 1000 649.167 000 ml @ 50 mls/hr IV . Q20H [facility] Rx#:[id number] Oral 200 Other: # Voids 4 # Bowel Movements 0 Weight Source Bedscale Active Medications: Current Medications Acetaminophen (Tylenol) 650 mg PO Q4H PRN PRN Reason: Pain or Fever >101 Stop: 08/16/17 03:44 Last Admin: 06/21/17 08:26 Dose: 650 mg Acetaminophen/Hydrocodone Bitart ([place] 5mg/325mg) 1 tab PO HS PRN PRN Reason: Pain Stop: 08/16/17 21:33 Last Admin: 06/20/17 08:38 Dose: 1 tab Ceftriaxone Sodium 1 gm/ (Sodium Chloride) 50 mls @ 100 mls/hr IV Q24HR [facility] Stop: 08/16/17 04:59 Last Admin: 06/21/17 05:04 Dose: 100 mls/hr Sodium Chloride (Nacl 0.45%) 1,000 mls @ 50 mls/hr IV .Q20H [facility] Stop: 08/17/17 16:15 Last Admin: 06/21/17 05:05 Dose: 50 mls/hr Morphine Sulfate (Morphine) 2 mg IVP Q4HR PRN PRN Reason: Pain (Moderate) Stop: 08/20/17 12:53 Mupirocin (Bactroban Oint) 1 appl NS BID [facility] Stop: 06/23/17 09:01 Last Admin: 06/21/17 08:27 Dose: 1 appl Ondansetron HCl (Zofran) 4 mg IV Q4H PRN PRN Reason: Nausea / Vomiting Stop: 08/16/17 03:42 Last Admin: 06/20/17 15:00 Dose: 4 mg Oxybutynin Chloride (Ditropan) 5 mg PO BID [facility] Stop: 08/19/17 10:14 Last Admin: 06/21/17 08:26 Dose: 5 mg Psyllium Hydrophilic Mucilloid (Metamucil) 1 pkt PO DAILY [facility] Stop: 08/20/17 08:59 Last Admin: 06/21/17 08:27 Dose: 1 pkt General: well developed, well nourished HEENT: atraumatic, normocephalic, PERRLA Neck: supple, thyromegaly Cardiovascular: S1S2, regular Lungs: no clear to auscultation bilaterally, no clear to percussion Abdomen: soft, bowel sounds, other, no tender, no distended, no mass, no rebound , no hepatomegaly, no splenomegaly Extremities: no cyanosis, no clubbing, no edema Neurological: awake, alert, oriented Skin: intact - Procedures Procedures: Procedures Procedure Code Date DELIVERY 35767 08/16/01 CYSTOSCOPY 07761 06/17/17 DILATION OF BILATERAL URETERS WITH INTRALUMINAL DEVICE, ENDO [id number] 06/17/17 DX PROC FETUS/AMNION NEC 75.35 08/16/01 DX ULTRASOUND-GRAV UTER 88.78 07/29/01 CONTRACT STRESS TEST 10535 08/16/01 MONITORING NOS 75.34 08/14/07 NON-STRESS TEST 48036 08/14/07 INJECT/INFUSE NEC 99.29 12/01/09 LOW CERVICAL 74.1 08/16/01 MATERNITY CARE PROCEDURE 36712 08/16/01 OB US LIMITED FETUS(S) 11755 07/29/01 Infectious Disease Assmt/Plan - Assessment Assessment: 1. Left-sided hydronephrosis and pyelonephritis. Status post cystoscopy and stent placement. 2. Prostatitis. 3. Chronic pain syndrome. - Plan Plan: Continue same treatment. Wean off Dilaudid to morphine. Patient is to follow to higher level of care for her kidney stones.
[2017-06-21] MEDS: Morphine Sulfate 4 mg/mL 1mL Syr IVP PRN ×2 (14:12→21:32)
[2017-06-22] MEDS: Hydrocodone/APAP 5mg/325mg Tab PO PRN (00:19)
[2017-06-22] MEDS: cefTRIAXone 1 GM in Sodium Chloride 0.9% 50 ML IV SCH (05:57)
[2017-06-22] MEDS: Sodium Chloride 0.45% 1,000 ML IV SCH (06:06)
[2017-06-22] MEDS: Morphine Sulfate 4 mg/mL 1mL Syr IVP PRN (06:52)
--- NOTE | 2017-06-22 10:26 | Diagnostic Imaging Report ---
CT scan abdomen and pelvis without intravenous contrast HISTORY: Pyelonephritis, pain Total DLP equals 354 CTDI equals 7.9 Axial sections were obtained from the xiphoid process down to the pubic symphysis. The liver exhibits a homogeneous parenchyma. No focal lesions. The spleen is somewhat generous in size. Suboptimal to lineation the pancreatic margins. No definite focal lesions. There is mild dilatation of the right renal pelvis without jadyn hydronephrosis. There is a left ureteral stent seen. The proximal tip is in the region of the left renal pelvis. The distal tip is within the lumen of the urinary bladder. Multiple relatively large calcifications noted in the left renal collecting system particularly of the lower pole. The largest measures approximately 2.4 cm. A moderate degree of hydronephrosis is noted. A small air collection noted within the left upper collecting system. Findings may be related to recent urologic procedure. No abnormal perinephric fluid collections are seen. There is mild to moderate dilatation of stool-filled large bowel. Changes are consistent with calcification. There is a mildly enlarged bulbous shaped uterus. No discrete abnormal masses or fluid collections seen within the pelvis. IMPRESSION: 1. Left ureteral stent associated with multiple relatively large left renal calculi and a moderate degree of hydronephrosis. Small air collection noted within the upper collecting system of the left kidney. The finding may be associated with recent urologic procedure. 2. Distended stool-filled large bowel consistent with constipation.
--- NOTE | 2017-06-22 10:35 | Infectious Disease Prog Note ---
Infectious Disease Subjective - Review of Systems Service Date: 06/22/17 Subjective: Persistent complaints of the left-sided low back pain. There is no fever. CT A /P was reviewed. Infectious Disease Objective - Results Result Diagrams: 06/18/17 05:46 06/21/17 05:10 Recent Labs: Laboratory Last Values WBC 5.8 Th/cmm (4.8-10.8) 06/18/17 05:46 RBC 4.29 Mil/cmm (3.80-5.10) 06/18/17 05:46 Hgb 12.6 gm/dL (12-16) 06/18/17 05:46 Hct 38.2 % (41.0-60) L 06/18/17 05:46 MCV 89.2 fl (81-100) 06/18/17 05:46 MCH 29.4 pg (27.0-31.0) 06/18/17 05:46 MCHC Differential 33.0 pg (28.0-36.0) 06/18/17 05:46 RDW 12.2 % (11.5-20.0) 06/18/17 05:46 Plt Count 235 Th/cmm (150-400) 06/18/17 05:46 MPV 7.4 fl 06/18/17 05:46 Neutrophils % 58.5 % (40.0-80.0) 06/18/17 05:46 Lymphocytes % 29.5 % (20.0-50.0) 06/18/17 05:46 Monocytes % 6.1 % (2.0-10.0) 06/18/17 05:46 Eosinophils % 4.8 % (0.0-5.0) 06/18/17 05:46 Basophils % 1.1 % (0.0-2.0) 06/18/17 05:46 PT 9.5 SECONDS (9.5-11.5) 06/18/17 05:46 INR 0.91 (0.5-1.4) 06/18/17 05:46 PTT (Actin FS) 25.6 SECONDS (26.0-38.0) L 06/17/17 10:22 Sodium 134 mEq/L (136-145) L 06/21/17 05:10 Potassium 4.5 mEq/L (3.5-5.1) 06/21/17 05:10 Chloride 104 mEq/L (98-107) 06/21/17 05:10 Carbon Dioxide 24.6 mEq/L (21.0-31.0) 06/21/17 05:10 Anion Gap 9.9 (7.0-16.0) 06/21/17 05:10 BUN 18 mg/dL (7-25) 06/21/17 05:10 Creatinine 0.8 mg/dL (0.6-1.2) 06/21/17 05:10 Est GFR ( Amer) > 60.0 ml/min (>90) 06/21/17 05:10 Est GFR (Non-Af Amer) > 60.0 ml/min 06/21/17 05:10 BUN/Creatinine Ratio 22.5 06/21/17 05:10 Glucose 88 mg/dL (70-105) 06/21/17 05:10 Calcium 9.5 mg/dL (8.6-10.3) 06/21/17 05:10 Total Bilirubin 0.2 mg/dL (0.3-1.0) L 06/16/17 23:38 AST 42 U/L (13-39) H 06/16/17 23:38 ALT 53 U/L (7-52) H 06/16/17 23:38 Alkaline Phosphatase 48 U/L (34-104) 06/16/17 23:38 B-Natriuretic Peptide 46.5 pg/mL (5.0-100.0) 06/17/17 10:22 Total Protein 7.6 gm/dL (6.0-8.3) 06/16/17 23:38 Albumin 4.1 gm/dL (3.7-5.3) 06/16/17 23:38 Globulin 3.5 gm/dL 06/16/17 23:38 Albumin/Globulin Ratio 1.2 (1.0-1.8) 06/16/17 23:38 Urine Source RANDOM 06/16/17 23:30 Urine Color YELLOW 06/16/17 23:30 Urine Clarity HAZY (CLEAR) 06/16/17 23:30 Urine pH 7.0 (4.6 - 8.0) 06/16/17 23:30 Ur Specific [place] <= 1.005 (1.005-1.030) 06/16/17 23:30 Urine Protein NEGATIVE mg/dL (NEGATIVE) 06/16/17 23:30 Urine Glucose (UA) NEGATIVE mg/dL (NEGATIVE) 06/16/17 23:30 Urine Ketones NEGATIVE mg/dL (NEGATIVE) 06/16/17 23:30 Urine Blood SMALL (NEGATIVE) H 06/16/17 23:30 Urine Nitrate NEGATIVE (NEGATIVE) 06/16/17 23:30 Urine Bilirubin NEGATIVE (NEGATIVE) 06/16/17 23:30 Urine Urobilinogen 0.2 E.U./dL (0.2 - 1.0) 06/16/17 23:30 Ur Leukocyte Esterase LARGE (NEGATIVE) H 06/16/17 23:30 Urine RBC 0-2 /hpf (0-5) 06/16/17 23:30 Urine WBC 10-25 /hpf (0-5) H 06/16/17 23:30 Ur Epithelial Cells MODERATE /lpf (FEW) 06/16/17 23:30 Urine Bacteria FEW /hpf (NONE SEEN) 06/16/17 23:30 Urine Test NEGATIVE 06/17/17 10:58 Urine Opiates Screen POSITIVE (NEGATIVE) H 06/16/17 23:30 Urine Methadone Screen NEGATIVE (NEGATIVE) 06/16/17 23:30 Ur Barbiturates Screen NEGATIVE (NEGATIVE) 06/16/17 23:30 Ur Tricyclics Screen NEGATIVE (NEGATIVE) 06/16/17 23:30 Ur Phencyclidine Scrn NEGATIVE (NEGATIVE) 06/16/17 23:30 Amphetamines Screen POSITIVE (NEGATIVE) H 06/16/17 23:30 U Methamphetamines Scrn POSITIVE (NEGATIVE) H 06/16/17 23:30 U Benzodiazepines Scrn NEGATIVE (NEGATIVE) 06/16/17 23:30 U Cocaine Metab Screen NEGATIVE (NEGATIVE) 06/16/17 23:30 U Cannabinoids Screen POSITIVE (NEGATIVE) H 06/16/17 23:30 - Physical Exam Vitals and I&O: Vital Signs Temp 98 F 06/22/17 08:00 Pulse 87 06/22/17 08:00 Resp 18 06/22/17 08:12 BP 130/81 06/22/17 08:00 Pulse Ox 99 06/22/17 08:00 Intake & Output 06/21/17 06/22/17 06/22/17 18:59 06:59 18:59 Intake Total 1250 Balance 1250 Weight (lbs) 61.689 kg Intake: Intake, IV Amount 1000 Sodium Chloride 0.45% 1, 1000 000 ml @ 50 mls/hr IV . Q20H [facility] Rx#:[id number] Oral 250 Other: # Voids 3 # Bowel Movements 0 Weight Source Bedscale Active Medications: Current Medications Acetaminophen (Tylenol) 650 mg PO Q4H PRN PRN Reason: Pain or Fever >101 Stop: 08/16/17 03:44 Last Admin: 06/21/17 08:26 Dose: 650 mg Acetaminophen/Hydrocodone Bitart ([place] 5mg/325mg) 1 tab PO HS PRN PRN Reason: Pain Stop: 08/16/17 21:33 Last Admin: 06/22/17 00:19 Dose: 1 tab Diphenhydramine HCl (Benadryl 50 Mg/Ml) 25 mg IVP Q6HR PRN PRN Reason: itchy Stop: 08/20/17 17:29 Last Admin: 06/21/17 17:50 Dose: 25 mg Ceftriaxone Sodium 1 gm/ (Sodium Chloride) 50 mls @ 100 mls/hr IV Q24HR [facility] Stop: 08/16/17 04:59 Last Admin: 06/22/17 05:57 Dose: 100 mls/hr Sodium Chloride (Nacl 0.45%) 1,000 mls @ 50 mls/hr IV .Q20H [facility] Stop: 08/17/17 16:15 Last Admin: 06/22/17 06:06 Dose: 50 mls/hr Morphine Sulfate (Morphine) 2 mg IVP Q4HR PRN PRN Reason: Pain (Moderate) Stop: 08/20/17 12:53 Last Admin: 06/22/17 06:52 Dose: 2 mg Mupirocin (Bactroban Oint) 1 appl NS BID [facility] Stop: 06/23/17 09:01 Last Admin: 06/22/17 09:18 Dose: 1 appl Ondansetron HCl (Zofran) 4 mg IV Q4H PRN PRN Reason: Nausea / Vomiting Stop: 08/16/17 03:42 Last Admin: 06/22/17 00:35 Dose: 4 mg Oxybutynin Chloride (Ditropan) 5 mg PO BID [facility] Stop: 08/19/17 10:14 Last Admin: 06/22/17 09:18 Dose: 5 mg Psyllium Hydrophilic Mucilloid (Metamucil) 1 pkt PO DAILY [facility] Stop: 08/20/17 08:59 Last Admin: 06/22/17 09:18 Dose: 1 pkt General: no acute distress, well developed, well nourished HEENT: atraumatic, normocephalic, PERRLA, EOMI Neck: supple, no thyromegaly, no lymphadenopathy Cardiovascular: S1S2, regular Lungs: clear to auscultation bilaterally, clear to percussion Abdomen: soft, no distended, no mass, no rebound Extremities: no cyanosis, no clubbing, no edema Neurological: awake, alert, oriented Skin: intact - Procedures Procedures: Procedures Procedure Code Date DELIVERY 10253 08/16/01 CYSTOSCOPY 97700 06/17/17 DILATION OF BILATERAL URETERS WITH INTRALUMINAL DEVICE, ENDO [id number] 06/17/17 DX PROC FETUS/AMNION NEC 75.35 08/16/01 DX ULTRASOUND-GRAV UTER 88.78 07/29/01 CONTRACT STRESS TEST 49295 08/16/01 MONITORING NOS 75.34 08/14/07 NON-STRESS TEST 31050 08/14/07 INJECT/INFUSE NEC 99.29 12/01/09 LOW CERVICAL 74.1 08/16/01 MATERNITY CARE PROCEDURE 63060 08/16/01 OB US LIMITED FETUS(S) 22481 07/29/01 Infectious Disease Assmt/Plan - Assessment Assessment: 1. Left-sided hydronephrosis and pyelonephritis. Status post cystoscopy and stent placement. 2. Prostatitis. 3. Chronic pain syndrome. - Plan Plan: Continue same treatment. Wean off Dilaudid to morphine. Patient is to follow to higher level of care for her kidney stones. May be transferred to the contracted facility. Patient had signed AMA recently.
[2017-06-22] MEDS: HYDROmorphone 2 mg/mL 1mL Vial IVP PRN ×2 (14:21→20:52)
[2017-06-23] MEDS: Sodium Chloride 0.45% 1,000 ML IV SCH (03:44)
[2017-06-23] MEDS: HYDROmorphone 2 mg/mL 1mL Vial IVP PRN ×2 (03:44→07:37)
[2017-06-23] MEDS: cefTRIAXone 1 GM in Sodium Chloride 0.9% 50 ML IV SCH (05:52)
[2017-06-23] MEDS ORDERED: Hydrocodone/APAP 5mg/325mg Tab PO PRN (08:51)
--- NOTE | 2017-06-23 08:55 | Infectious Disease Prog Note ---
Infectious Disease Subjective - Review of Systems Service Date: 06/23/17 Events since last encounter: c/o pain no change. Subjective: Persistent complaints of the left-sided low back pain. There is no fever. Infectious Disease Objective - Results Result Diagrams: 06/18/17 05:46 06/21/17 05:10 Recent Labs: Laboratory Last Values WBC 5.8 Th/cmm (4.8-10.8) 06/18/17 05:46 RBC 4.29 Mil/cmm (3.80-5.10) 06/18/17 05:46 Hgb 12.6 gm/dL (12-16) 06/18/17 05:46 Hct 38.2 % (41.0-60) L 06/18/17 05:46 MCV 89.2 fl (81-100) 06/18/17 05:46 MCH 29.4 pg (27.0-31.0) 06/18/17 05:46 MCHC Differential 33.0 pg (28.0-36.0) 06/18/17 05:46 RDW 12.2 % (11.5-20.0) 06/18/17 05:46 Plt Count 235 Th/cmm (150-400) 06/18/17 05:46 MPV 7.4 fl 06/18/17 05:46 Neutrophils % 58.5 % (40.0-80.0) 06/18/17 05:46 Lymphocytes % 29.5 % (20.0-50.0) 06/18/17 05:46 Monocytes % 6.1 % (2.0-10.0) 06/18/17 05:46 Eosinophils % 4.8 % (0.0-5.0) 06/18/17 05:46 Basophils % 1.1 % (0.0-2.0) 06/18/17 05:46 PT 9.5 SECONDS (9.5-11.5) 06/18/17 05:46 INR 0.91 (0.5-1.4) 06/18/17 05:46 PTT (Actin FS) 25.6 SECONDS (26.0-38.0) L 06/17/17 10:22 Sodium 134 mEq/L (136-145) L 06/21/17 05:10 Potassium 4.5 mEq/L (3.5-5.1) 06/21/17 05:10 Chloride 104 mEq/L (98-107) 06/21/17 05:10 Carbon Dioxide 24.6 mEq/L (21.0-31.0) 06/21/17 05:10 Anion Gap 9.9 (7.0-16.0) 06/21/17 05:10 BUN 18 mg/dL (7-25) 06/21/17 05:10 Creatinine 0.8 mg/dL (0.6-1.2) 06/21/17 05:10 Est GFR ( Amer) > 60.0 ml/min (>90) 06/21/17 05:10 Est GFR (Non-Af Amer) > 60.0 ml/min 06/21/17 05:10 BUN/Creatinine Ratio 22.5 06/21/17 05:10 Glucose 88 mg/dL (70-105) 06/21/17 05:10 Calcium 9.5 mg/dL (8.6-10.3) 06/21/17 05:10 Total Bilirubin 0.2 mg/dL (0.3-1.0) L 06/16/17 23:38 AST 42 U/L (13-39) H 06/16/17 23:38 ALT 53 U/L (7-52) H 06/16/17 23:38 Alkaline Phosphatase 48 U/L (34-104) 06/16/17 23:38 B-Natriuretic Peptide 46.5 pg/mL (5.0-100.0) 06/17/17 10:22 Total Protein 7.6 gm/dL (6.0-8.3) 06/16/17 23:38 Albumin 4.1 gm/dL (3.7-5.3) 06/16/17 23:38 Globulin 3.5 gm/dL 06/16/17 23:38 Albumin/Globulin Ratio 1.2 (1.0-1.8) 06/16/17 23:38 Urine Source RANDOM 06/16/17 23:30 Urine Color YELLOW 06/16/17 23:30 Urine Clarity HAZY (CLEAR) 06/16/17 23:30 Urine pH 7.0 (4.6 - 8.0) 06/16/17 23:30 Ur Specific [place] <= 1.005 (1.005-1.030) 06/16/17 23:30 Urine Protein NEGATIVE mg/dL (NEGATIVE) 06/16/17 23:30 Urine Glucose (UA) NEGATIVE mg/dL (NEGATIVE) 06/16/17 23:30 Urine Ketones NEGATIVE mg/dL (NEGATIVE) 06/16/17 23:30 Urine Blood SMALL (NEGATIVE) H 06/16/17 23:30 Urine Nitrate NEGATIVE (NEGATIVE) 06/16/17 23:30 Urine Bilirubin NEGATIVE (NEGATIVE) 06/16/17 23:30 Urine Urobilinogen 0.2 E.U./dL (0.2 - 1.0) 06/16/17 23:30 Ur Leukocyte Esterase LARGE (NEGATIVE) H 06/16/17 23:30 Urine RBC 0-2 /hpf (0-5) 06/16/17 23:30 Urine WBC 10-25 /hpf (0-5) H 06/16/17 23:30 Ur Epithelial Cells MODERATE /lpf (FEW) 06/16/17 23:30 Urine Bacteria FEW /hpf (NONE SEEN) 06/16/17 23:30 Urine Test NEGATIVE 06/17/17 10:58 Urine Opiates Screen POSITIVE (NEGATIVE) H 06/16/17 23:30 Urine Methadone Screen NEGATIVE (NEGATIVE) 06/16/17 23:30 Ur Barbiturates Screen NEGATIVE (NEGATIVE) 06/16/17 23:30 Ur Tricyclics Screen NEGATIVE (NEGATIVE) 06/16/17 23:30 Ur Phencyclidine Scrn NEGATIVE (NEGATIVE) 06/16/17 23:30 Amphetamines Screen POSITIVE (NEGATIVE) H 06/16/17 23:30 U Methamphetamines Scrn POSITIVE (NEGATIVE) H 06/16/17 23:30 U Benzodiazepines Scrn NEGATIVE (NEGATIVE) 06/16/17 23:30 U Cocaine Metab Screen NEGATIVE (NEGATIVE) 06/16/17 23:30 U Cannabinoids Screen POSITIVE (NEGATIVE) H 06/16/17 23:30 - Physical Exam Vitals and I&O: Vital Signs Temp 98.1 F 06/23/17 08:00 Pulse 82 06/23/17 08:00 Resp 20 06/23/17 08:00 BP 135/90 06/23/17 08:00 Pulse Ox 100 06/23/17 08:00 Intake & Output 06/22/17 06/23/17 06/23/17 18:59 06:59 18:59 Intake Total 1250.000 Balance 1250.000 Weight (lbs) 61.235 kg Intake: Intake, IV Amount 1000.000 Sodium Chloride 0.45% 1, 1000.000 000 ml @ 50 mls/hr IV . Q20H [facility] Rx#:[id number] Oral 250 Other: # Voids 3 # Bowel Movements 1 Weight Source Bedscale Active Medications: Current Medications Acetaminophen (Tylenol) 650 mg PO Q4H PRN PRN Reason: Pain or Fever >101 Stop: 08/16/17 03:44 Last Admin: 06/21/17 08:26 Dose: 650 mg Acetaminophen/Hydrocodone Bitart ([place] 5mg/325mg) 1 tab PO HS PRN PRN Reason: Pain Stop: 08/16/17 21:33 Last Admin: 06/22/17 00:19 Dose: 1 tab Diphenhydramine HCl (Benadryl 50 Mg/Ml) 25 mg IVP Q6HR PRN PRN Reason: itchy Stop: 08/20/17 17:29 Last Admin: 06/21/17 17:50 Dose: 25 mg Hydromorphone HCl (Dilaudid) 1 mg IVP Q4HR PRN PRN Reason: Pain (Severe) Stop: 08/21/17 11:51 Last Admin: 06/23/17 07:37 Dose: 1 mg Ceftriaxone Sodium 1 gm/ (Sodium Chloride) 50 mls @ 100 mls/hr IV Q24HR [facility] Stop: 08/16/17 04:59 Last Admin: 06/23/17 05:52 Dose: 100 mls/hr Sodium Chloride (Nacl 0.45%) 1,000 mls @ 50 mls/hr IV .Q20H [facility] Stop: 08/17/17 16:15 Last Admin: 06/23/17 03:44 Dose: 50 mls/hr Mupirocin (Bactroban Oint) 1 appl NS BID [facility] Stop: 06/23/17 09:01 Last Admin: 06/23/17 08:29 Dose: 1 appl Ondansetron HCl (Zofran) 4 mg IV Q4H PRN PRN Reason: Nausea / Vomiting Stop: 08/16/17 03:42 Last Admin: 06/22/17 16:07 Dose: 4 mg Oxybutynin Chloride (Ditropan) 5 mg PO BID [facility] Stop: 08/19/17 10:14 Last Admin: 06/23/17 08:27 Dose: 5 mg Psyllium Hydrophilic Mucilloid (Metamucil) 1 pkt PO DAILY [facility] Stop: 08/20/17 08:59 Last Admin: 06/23/17 08:29 Dose: 1 pkt General: no acute distress, well developed, well nourished HEENT: atraumatic, normocephalic, PERRLA, EOMI Neck: supple, no thyromegaly Cardiovascular: S1S2, regular Lungs: clear to auscultation bilaterally, clear to percussion Abdomen: soft, no tender, no distended Extremities: no cyanosis, no clubbing, no edema Neurological: awake, alert, oriented Skin: intact - Procedures Procedures: Procedures Procedure Code Date DELIVERY 48009 08/16/01 CYSTOSCOPY 58622 06/17/17 DILATION OF BILATERAL URETERS WITH INTRALUMINAL DEVICE, ENDO [id number] 06/17/17 DX PROC FETUS/AMNION NEC 75.35 08/16/01 DX ULTRASOUND-GRAV UTER 88.78 07/29/01 CONTRACT STRESS TEST 81469 08/16/01 MONITORING NOS 75.34 08/14/07 NON-STRESS TEST 07159 08/14/07 INJECT/INFUSE NEC 99.29 12/01/09 LOW CERVICAL 74.1 08/16/01 MATERNITY CARE PROCEDURE 81017 08/16/01 OB US LIMITED FETUS(S) 32912 07/29/01 Infectious Disease Assmt/Plan - Assessment Assessment: 1. Left-sided hydronephrosis and pyelonephritis. Status post cystoscopy and stent placement. 2. Prostatitis. 3. Chronic pain syndrome. - Plan Plan: Continue same treatment. Wean off Dilaudid to morphine. Patient is to follow to higher level of care for her kidney stones. May be transferred to the contracted facility. Patient had signed AMA recently. Nutritional Asmnt/Malnutr-PDOC - Dietary Evaluation Malnutrition Findings (Please click <Entered> for more info): Nutritional Asmnt/Malnutrition Start: 06/22/17 16: 27 Text: Status: Active Freq: Document 06/22/17 16:27 MIKE (Rec: 06/22/17 16:37 LCHENG [id number]) Nutritional Asmnt/Malnutrition Patient General Information Nutritional Screening Moderate Risk Diagnosis UTI, kidney stone Pertinent Medical Hx/Surgical Hx , lithotripsies Subjective Information Pt seen lying in bed at time of visit. Pt stated good appetite, likes ice cream and jello. Per EMR, PO intake 75- 100% over the past alvarado days. Current Diet Order/ Nutrition Support low sodium 2 gm Pertinent Medications nacl 0.45% Pertinent Labs 06/21 Na 134 Nutritional Hx/Data Height 1.57 m Height (Calculated Centimeters) 157.5 Current Weight (lbs) 61.689 kg Weight (Calculated Kilograms) 61.7 Weight (Calculated Grams) 37726.6 [place] Body Weight 110 Body Mass Index (BMI) 24.8 Weight Status Approriate GI Symptoms GI Symptoms None Last BM 0 Difficult in: None Skin Integrity/Comment: intact Current %PO Good (75-100%) Estimated Nutritional Goals BEE in Kcals: Using Current wt Calories/Kcals/Kg 25-30 Kcals Calculated 9596-9353 Protein: Using Current wt Protein g/k Protein Calculated 62 Fluid: ml 1550-1860ml (1ml/kcal) Nutritional Problem No current Nutrition Prob Problem N/A Malnutrition Alert Protein-Calorie Malnutrition N/A Is there a minimum of two criteria No selected? Query Text:Check all the applicable criteria. A minimum of two criteria are recommended for diagnosis of either severe or non-severe malnutrition. Intervention/Recommendation Comments 1. Continue with low sodium diet as ordered. Food preference updated. 2. Monitor PO intake, wt, labs and skin integrity 3. F/U as low risk in 7 days, 5/ Expected Outcomes/Goals Expected Outcomes/Goals 1. PO intake to meet at least 75% of nutritional needs. 2. Wt stability, skin to remain intact, labs to approach WNL.
== END 2017-06-23 12:00 | disposition left against medical advice (07) | DRG 463 ==
LOC: ER 22:34 → MSI 06-17 03:50
PROVIDERS: ADMIT Internal Medicine; ATTEND Internal Medicine
PROC: 0T788DZ Dilation of Bilateral Ureters with Intraluminal Device, Via Natural or Artificial Opening Endoscopic (ICD-10-PCS; principal; 2017-06-18)
DX: N13.6 Pyonephrosis (principal); F17.210 Nicotine dependence, cigarettes, uncomplicated; N12 Tubulo-interstitial nephritis, not specified as acute or chronic; G89.4 Chronic pain syndrome; M19.90 Unspecified osteoarthritis, unspecified site; N18.9 Chronic kidney disease, unspecified; I25.10 Atherosclerotic heart disease of native coronary artery without angina pectoris; N20.0 Calculus of kidney
CPT/HCPCS: 36415-UA; 71045-TC; 74000-TC; 76000-TC; 76770-TC; 80048-TC; 80053-TC; 80307; 81001-TC; 81025-TC; 83880-TC; 85025-TC; 85610-TC; 87086-90; 93005; J0696; J1170; J1200; J1956; J2405; J2704; J3010; J3480; J7030; Q9967; V2790; X6494; Z7610

== ENCOUNTER 2017-06-24 19:40 | Emergency (ER) | payer MEDICAID ==
--- NOTE | 2017-06-24 20:22 | ED Physician Chart ---
ED Chief Complaint/HPI - Patient Information Date Seen:: 06/24/17 Time Seen:: 19:45 Chief Complaint:: Dysuria History of Present Illness:: onset x 2 days of dysuria; Hx of Kidney Stones and UTI; pt denies trauma, H/As, S/T, neck pain, cough, C/P, SOB, Abd. 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 Allergies:: Allergies Allergy/AdvReac Type Severity Reaction Status Date / Time Sulfa (Sulfonamide Allergy Verified 08/14/15 00:06 Antibiotics) Historian:: Patient Review:: Nurse's Note Reviewed ED Review of Systems - Review of Systems General/Constitutional: No fever, No chills, No weight loss, No weakness, No diaphoresis, No edema, No loss of appetite Skin: No skin lesions, No rash, No bruising Head: No headache, No light-headedness Eyes: No loss of vision, No pain, No diplopia ENT: No earache, No nasal drainage, No sore throat, No tinnitus Neck: No neck pain, No swelling, No thyromegaly, No stiffness, No mass noted Cardio Vascular: No chest pain, No palpitations, No PND, No orthopnea, No edema Pulmonary: No SOB, No cough, No sputum, No wheezing GI: No nausea, No vomiting, No diarrhea, No pain, No melena, No hematochezia, No constipation, No hematemesis G/U: Dysuria, Frequency, Hematuria, No nacturia Ultra Sound Technician: No vaginal discharge, No abnormal vaginal bleed, No contraction Musculoskeletal: No bone or joint pain, No back pain, No muscle pain Endocrine: No polyuria, No polydipsia Psychiatric: No prior psych history, No depression, No anxiety, No suicidal ideation, No homicidal ideation, No auditory hallucination, No visual hallucination Hematopoietic: No bruising, No lymphadenopathy Allergic/Immuno: No urticaria, No angioedema Neurological: No syncope, No focal symptoms, No weakness, No paresthesia, No headache, No seizure, No dizziness, No confusion, No vertigo ED Past Medical History - Past Medical History Obtainable: Yes Past Medical History: Renal stone Family History: HTN Social History: Non Smoker, No Alcohol, No Drug Use, Single Surgical History: None Psychiatricy History: None Medication: Reviewed Family Medical History - Family Member Mother History Unknown: Yes Ethnicity: Non- Living Status: Still Living Hx Family Cancer: No Hx Family Coronary Artery Disease: No Hx Family Congestive Heart Failure: No Hx Family Hypertension: No Hx Family Stroke: No Hx Family Diabetes: No Hx Family Seizures: No Hx Family Dementia: No Hx Family AIDS: No Hx Family HIV: No Hx Family COPD: No Hx Family Hepatitis: No Hx Family Psychiatric Problems: No Hx Family Tuberculosis: No ED Physical Exam - Physical Examination General/Constitutional: Awake, Well-developed, well-nourished, Alert, No distress, GCS 15, Non-toxic appearing, Ambulatory Head: Atraumatic Eyes: Lids, conjuctiva normal, PERRL, EOMI Skin: Nl inspection, No rash, No skin lesions, No ecchymosis, Well hydrated, No lymphadenopathy ENMT: External ears, nose nl, TM canals nl, Nasal exam nl, Lips, teeth, gums nl , Oropharynx nl, Tonsils nl Neck: Nontender, Full ROM w/o pain, No JVD, No nuchal rigidity, No bruit, No mass, No stridor Other Neck comments:: supple; no meningeal signs; no cervical tenderness Respiratory: Nl effort/Exclusion, Clear to Auscultation, No Wheeze/Rhonchi/Rales Cardio Vascular: RRR, No murmur, gallop, rubs, NL S1 S2, Carotid/Femoral/Distal pulses equal bilaterally GI: No tenderness/rebounding/guarding, No organomegaly, No hernia, Normal BS's, Nondistended, No mass/bruits, No McBurney tenderness, Rectum exam nl Other GI comments:: no pulsatile masses : No CVA tenderness Extremities: No tenderness or effusion, Full ROM, normal strength in all extremities, No edema, Normal digits & nails Neuro/Psych: Alert/oriented, DTR's symmetric, Normal sensory exam, Normal motor strength, Judgement/insight normal, Mood normal, Normal gait, No focal deficits Misc: Normal back, No paraspinal tenderness ED Septic Shock - . Is Septic Shock (SBP<90, OR Lactate>4 mmol\L) present?: No ED Reassessment (Disposition) - Reassessment Reassessment:: pt tolerated po fluids well in ER; pt chose to sign out AMA; pt is asymptomatic upon discharge/AMA Reassessment Condition:: Improved - Diagnosis Diagnosis:: Dysuria; Nephrolithiasis; Ureterolithiasis; UTI - Aftercare/Follow up Instructions Aftercare/Follow-Up Instructions:: Counseled pt regarding lab results/diagnosis & need follow up, Refer to Discharge Instructions, Counseled pt & family regarding lab results/diagnosis & need follow up - Patient Disposition Discharge/Transfer:: Against Medical Advice (RTER prn if existing s/s reoccur and/or get worse and/or any other new s/s occur; ACIs given for all above Dx; Continue Antibiotics as prescribed; Strain all Urine; refer to Urologist/ [facility]; F/U with PMD in one day or prn; RTER prn if concerned)
== END 2017-06-24 20:40 | disposition left against medical advice (07) ==
LOC: ER 19:40
DX: N20.2 Calculus of kidney with calculus of ureter (principal); N39.0 Urinary tract infection, site not specified; Z88.2 Allergy status to sulfonamides
CPT/HCPCS: 81025-TC; Z7502

== ENCOUNTER 2017-09-14 07:48 | Inpatient (IN) | payer MEDICAID ==
[2017-09-14 08:20] LABS: URINE MICROSCOPIC INDICATED? YES; URINE SOURCE CLEAN C
[2017-09-14 08:21] LABS: % BASOPHILS 0.1 % (0.0-2.0); % EOSINOPHILS 2.4 % (0.0-5.0); % MONOCYTES 4.1 % (2.0-10.0); % NEUTROPHILS 80.4 % (40.0-80.0); EOSINOPHILE ABSOLUTE 0.2 Th/cmm (0.1-0.4); HEMOGLOBIN 13.2 gm/dL (12-16); LYMPHOCYTE ABSOLUTE 1.1 Th/cmm (1.5-3.0); MEAN CELL VOLUME 87.3 fl (81-100); MEAN CORPUSCULAR HEMOGLOBIN 28.9 pg (27.0-31.0); MEAN CORPUSCULAR HGB CONC 33.1 pg (28.0-36.0); MEAN PLATELET VOLUME 7.6 fl; MONOCYTE ABSOLUTE 0.4 Th/cmm (0.3-1.0); NEUTROPHILE ABSOLUTE 7.1 Th/cmm (1.8-8.0); PLATELET COUNT 236 Th/cmm (150-400); RED BLOOD COUNT 4.58 Mil/cmm (3.80-5.10); RED CELL DISTRIBUTION WIDTH 12.9 % (11.5-20.0); WHITE BLOOD COUNT 8.8 Th/cmm (4.8-10.8)
[2017-09-14 08:23] LABS: URINE BILIRUBIN NEGATIVE (NEGATIVE); URINE BLOOD LARGE (NEGATIVE); URINE COLOR YELLOW; URINE GLUCOSE (UA) NEGATIVE (NEGATIVE); URINE KETONE NEGATIVE (NEGATIVE); URINE LEUKOCYTE ESTERASE LARGE (NEGATIVE); URINE NITRATE POSITIVE (NEGATIVE); URINE PROTEIN 100 mg/dL (NEGATIVE); URINE UROBILINOGEN 0.2 E.U./dL (0.2 - 1.0)
[2017-09-14 08:24] LABS: URINE CLARITY CLOUDY (CLEAR)
[2017-09-14 08:27] LABS: URINE RBC 25-50 /hpf (0-5)
[2017-09-14 08:28] LABS: URINE BACTERIA MANY /hpf (NONE SEEN); URINE EPITHELIAL CELLS FEW /lpf (FEW); URINE WBC >100 /hpf (0-5)
--- NOTE | 2017-09-14 08:28 | ED Physician Chart ---
ED Chief Complaint/HPI - Patient Information Date Seen:: 09/14/17 Time Seen:: 08:00 Chief Complaint:: abdominal pain History of Present Illness:: this is a 37 yo female with a history of renal stones who is concern about left flank pain 08/02 who has been here on a number of occasions. she is requesting dilaudid or morphine for her pain. she denies nausea and vomiting. she states that the pain started last night. she denies drug abuse and alcohol intake. Allergies:: Allergies Allergy/AdvReac Type Severity Reaction Status Date / Time Sulfa (Sulfonamide Allergy Verified 08/14/15 00:06 Antibiotics) Vitals:: Vital Signs - 8 hr 09/14/17 07:57 Temp 98.0 F HR 118 RR 25 BP 128/87 O2 Sat % 100 Historian:: Patient Review:: Nurse's Note Reviewed, Old Chart Reviewed ED Review of Systems - Review of Systems General/Constitutional: No fever, No chills, No weight loss, No weakness, No diaphoresis, No edema, No loss of appetite Skin: No skin lesions, No rash, No bruising Head: No headache, No light-headedness Eyes: No loss of vision, No pain, No diplopia ENT: No earache, No nasal drainage, No sore throat, No tinnitus Neck: No neck pain, No swelling, No thyromegaly, No stiffness, No mass noted Cardio Vascular: No chest pain, No palpitations, No PND, No orthopnea, No edema Pulmonary: No SOB, No cough, No sputum, No wheezing GI: No nausea, No vomiting, No diarrhea, Pain, No melena, No hematochezia, No constipation, No hematemesis G/U: No dysuria, No frequency, No hematuria Musculoskeletal: No bone or joint pain, No back pain, No muscle pain Endocrine: No polyuria, No polydipsia Psychiatric: No prior psych history, No depression, No anxiety, No suicidal ideation Hematopoietic: No bruising, No lymphadenopathy Allergic/Immuno: No urticaria, No angioedema Neurological: No syncope, No focal symptoms, No weakness, No paresthesia, No headache, No seizure, No dizziness, No confusion, No vertigo ED Past Medical History - Past Medical History Obtainable: Yes Past Medical History: Renal stone, Other (drug abuse) Family History: None Social History: Smoker, Alcohol, Illicit Drug Use, Single Surgical History: Psychiatricy History: Bipolar Family Medical History - Family Member Mother History Unknown: Yes Ethnicity: Non- Living Status: Still Living Hx Family Cancer: No Hx Family Coronary Artery Disease: No Hx Family Congestive Heart Failure: No Hx Family Hypertension: No Hx Family Stroke: No Hx Family Diabetes: No Hx Family Seizures: No Hx Family Dementia: No Hx Family AIDS: No Hx Family HIV: No Hx Family COPD: No Hx Family Hepatitis: No Hx Family Psychiatric Problems: No Hx Family Tuberculosis: No ED Physical Exam - Physical Examination General/Constitutional: Awake, Well-developed, well-nourished, Alert, No distress, GCS 15, Non-toxic appearing, Ambulatory Head: Atraumatic Eyes: Lids, conjuctiva normal, PERRL, EOMI Skin: Nl inspection, No rash, No skin lesions, No ecchymosis, Well hydrated, No lymphadenopathy ENMT: External ears, nose nl, Nasal exam nl, Lips, teeth, gums nl Neck: Nontender, Full ROM w/o pain, No JVD, No nuchal rigidity, No bruit, No mass, No stridor Respiratory: Nl effort/Exclusion, Clear to Auscultation, No Wheeze/Rhonchi/Rales Cardio Vascular: RRR, No murmur, gallop, rubs, NL S1 S2 GI: No tenderness/rebounding/guarding (there is a small amount of left flank tenderness), No organomegaly, No hernia, Normal BS's, Nondistended, No mass/ bruits, No McBurney tenderness : No CVA tenderness Extremities: No tenderness or effusion, Full ROM, normal strength in all extremities, No edema, Normal digits & nails Neuro/Psych: Alert/oriented, DTR's symmetric, Normal sensory exam, Normal motor strength, Judgement/insight normal, Mood normal, Normal gait, No focal deficits Misc: Normal back, No paraspinal tenderness ED Labs/Radiology/EKG Results - Lab Results Results: Laboratory Tests 09/14/17 08:15 WBC 8.8 RBC 4.58 Hgb 13.2 Hct 40.0 L MCV 87.3 MCH 28.9 MCHC Differential 33.1 RDW 12.9 Plt Count 236 MPV 7.6 Neutrophils % 80.4 H Lymphocytes % 13.0 L Monocytes % 4.1 Eosinophils % 2.4 Basophils % 0.1 Abnormal Lab Results 09/14/17 09/14/17 09/14/17 07:50 07:50 07:50 WBC RBC Hgb Hct MCV MCH MCHC Differential RDW Plt Count MPV Neutrophils % Lymphocytes % Monocytes % Eosinophils % Basophils % Sodium Potassium Chloride Carbon Dioxide Anion Gap BUN Creatinine Est GFR ( Amer) Est GFR (Non-Af Amer) BUN/Creatinine Ratio Glucose Calcium Total Bilirubin AST ALT Alkaline Phosphatase Total Protein Albumin Globulin Albumin/Globulin Ratio Urine Source CLEAN C Urine Color YELLOW Urine Clarity CLOUDY H Urine pH 7.0 Ur Specific [place] 1.020 Urine Protein 100 H Urine Glucose (UA) NEGATIVE Urine Ketones NEGATIVE Urine Blood LARGE H Urine Nitrate POSITIVE H Urine Bilirubin NEGATIVE Urine Urobilinogen 0.2 Ur Leukocyte Esterase LARGE H Urine RBC 25-50 H Urine WBC >100 H Ur Epithelial Cells FEW Urine Bacteria MANY H Urine Test NEGATIVE Urine Opiates Screen POSITIVE H Urine Methadone Screen NEGATIVE Ur Barbiturates Screen NEGATIVE Ur Tricyclics Screen NEGATIVE Ur Phencyclidine Scrn NEGATIVE Amphetamines Screen POSITIVE H U Methamphetamines Scrn POSITIVE H U Benzodiazepines Scrn NEGATIVE U Cocaine Metab Screen NEGATIVE U Cannabinoids Screen POSITIVE H 09/14/17 09/14/17 08:15 08:15 WBC 8.8 RBC 4.58 Hgb 13.2 Hct 40.0 L MCV 87.3 MCH 28.9 MCHC Differential 33.1 RDW 12.9 Plt Count 236 MPV 7.6 Neutrophils % 80.4 H Lymphocytes % 13.0 L Monocytes % 4.1 Eosinophils % 2.4 Basophils % 0.1 Sodium 134 L Potassium 3.8 Chloride 101 Carbon Dioxide 25.9 Anion Gap 10.9 BUN 10 Creatinine 0.7 Est GFR ( Amer) > 60.0 Est GFR (Non-Af Amer) > 60.0 BUN/Creatinine Ratio 14.3 Glucose 109 H Calcium 9.4 Total Bilirubin 0.5 AST 28 ALT 46 Alkaline Phosphatase 44 Total Protein 7.5 Albumin 3.9 Globulin 3.6 Albumin/Globulin Ratio 1.1 Urine Source Urine Color Urine Clarity Urine pH Ur Specific [place] Urine Protein Urine Glucose (UA) Urine Ketones Urine Blood Urine Nitrate Urine Bilirubin Urine Urobilinogen Ur Leukocyte Esterase Urine RBC Urine WBC Ur Epithelial Cells Urine Bacteria Urine Test Urine Opiates Screen Urine Methadone Screen Ur Barbiturates Screen Ur Tricyclics Screen Ur Phencyclidine Scrn Amphetamines Screen U Methamphetamines Scrn U Benzodiazepines Scrn U Cocaine Metab Screen U Cannabinoids Screen - Radiology Results Results: CT SCAN OF THE ABDOMEN = renal stones with left sided severe hydronephosis ED Assessment - Assessment General Assessment: RENAL STONE WITH OBSTRUCTION urinary tract infection drug abuse ED Septic Shock - . Is Septic Shock (SBP<90, OR Lactate>4 mmol\L) present?: No - <6hrs of presentation: Vital Signs: Vital Signs - 8 hr 09/14/ 07:57 Temp 98.0 F HR 118 RR 25 BP 128/87 O2 Sat % 100 ED Reassessment (Disposition) - Diagnosis Diagnosis:: RENAL STONE WITH OBSTRUCTION URINARY TRACT INFECTION DRUG ABUSE METHAMPHETAMINE - Patient Disposition Discharge/Transfer:: Acute Care w/in this hosp Admitted to:: Med/Surg Admitting Medical Physician:: Thierry Zhou Condition at Disposition:: Improved
[2017-09-14 08:38] LABS: ALB/GLOB RATIO 1.1 (1.0-1.8); ALBUMIN 3.9 gm/dL (3.7-5.3); ALKALINE PHOSPHATASE 44 U/L (34-104); ANION GAP 10.9 (7.0-16.0); BILIRUBIN,TOTAL 0.5 mg/dL (0.3-1.0); BUN - UREA NITROGEN 10 mg/dL (7-25); CALCIUM SERUM 9.4 mg/dL (8.6-10.3); CARBON DIOXIDE 25.9 mEq/L (21.0-31.0); CHLORIDE 101 mEq/L (98-107); CREATININE - SERUM 0.7 mg/dL (0.6-1.2); GFR AFRICAN-AMERICAN > 60.0 ml/min (>90); GFR NON AFRICAN-AMERICAN > 60.0 ml/min; GLUCOSE 109 mg/dL (70-105); POTASSIUM SERUM 3.8 mEq/L (3.5-5.1); SGOT 28 U/L (13-39); SGPT/ALT 46 U/L (7-52); SODIUM SERUM 134 mEq/L (136-145); TOTAL PROTEIN,SERUM 7.5 gm/dL (6.0-8.3)
[2017-09-14 09:08] LABS: AMPHETAMINE URINE POSITIVE (NEGATIVE); BARBITURATES URINE NEGATIVE (NEGATIVE); BENZODIAZEPINES QUAL URINE NEGATIVE (NEGATIVE); CANNABINOID THC POSITIVE (NEGATIVE); COCAINE METABOLITE QUAL URINE NEGATIVE (NEGATIVE); METHADONE URINE NEGATIVE (NEGATIVE); METHAMPHETAMINES QUAL URINE POSITIVE (NEGATIVE); OPIATES (MORPHINE) QUAL. URINE POSITIVE (NEGATIVE); PHENCYCLIDINE (PCP) URINE NEGATIVE (NEGATIVE); TRICYCLICS (TCA) QUAL. URINE NEGATIVE (NEGATIVE)
--- NOTE | 2017-09-14 10:05 | Diagnostic Imaging Report ---
CT abdomen and pelvis without intravenous contrast Indication: Left flank pain Comparison: CT abdomen and pelvis on 06/22/2017, Technique: Axial images were obtained from the lung bases to the bilateral proximal femurs without IV contrast. Coronal reconstructions were made. total DLP: 360, CTDI7.5 FINDINGS: Hypoventilatory and atelectatic changes of the lung bases are noted. Assessment of solid organs is limited due to lack of IV contrast. No evidence of focal hepatic lesions. No focal splenic lesions. Mild splenomegaly is noted. There are multiple large renal calculi along the left mid and left lower pole measuring up to 2 cm. There is severe left hydronephrosis and hydroureter with left double-J nephroureteral stent seen with proximal pigtail loop seen along the left renal pelvis just proximal to the ureteropelvic junction. There is a 5 mm stone seen along the left mid ureter adjacent to the left nephroureteral stent. Additional small stones are also seen measuring up to 5-mm within the urinary bladder. There is copious amount of stool throughout the colon. No appendicitis. There is trace free fluid in the pelvis. No free air. The osseous structures demonstrate no acute abnormalities. IMPRESSION: Severe left hydronephrosis and left hydroureter with left-sided double-J nephroureteral stent again noted as detailed above. There are multiple large left renal stones. There is also additional 5 mm stone within the left mid ureter adjacent to the patient's left nephroureteral stent. Additional small stones within the urinary bladder are also noted. Copious amount of stool throughout the colon. Trace free fluid in the pelvis Mild splenomegaly.
[2017-09-14] MEDS ORDERED: Sodium Chloride 0.45% 1,000 ML IV ONE (11:51)
[2017-09-14] MEDS ORDERED: cefTRIAXone 1 GM in Sodium Chloride 0.9% 50 ML IV SCH (14:45)
[2017-09-14 15:20] VITALS: BP 132/95
[2017-09-14] MEDS: Hydrocodone/APAP 5mg/325mg Tab PO PRN (18:44)
[2017-09-15 05:08] LABS: % BASOPHILS 1.8 % (0.0-2.0); % EOSINOPHILS 2.9 % (0.0-5.0); % LYMPHOCYTES 19.8 % (20.0-50.0); % MONOCYTES 5.5 % (2.0-10.0); BASOPHILE ABSOLUTE 0.1 Th/cumm (0-0.2); EOSINOPHILE ABSOLUTE 0.2 Th/cmm (0.1-0.4); HEMATOCRIT 42.2 % (41.0-60); HEMOGLOBIN 13.8 gm/dL (12-16); LYMPHOCYTE ABSOLUTE 1.6 Th/cmm (1.5-3.0); MEAN CORPUSCULAR HEMOGLOBIN 28.7 pg (27.0-31.0); MEAN CORPUSCULAR HGB CONC 32.6 pg (28.0-36.0); MEAN PLATELET VOLUME 8.1 fl; MONOCYTE ABSOLUTE 0.4 Th/cmm (0.3-1.0); NEUTROPHILE ABSOLUTE 5.7 Th/cmm (1.8-8.0); RED BLOOD COUNT 4.79 Mil/cmm (3.80-5.10); RED CELL DISTRIBUTION WIDTH 12.7 % (11.5-20.0)
[2017-09-15 05:26] LABS: ALB/GLOB RATIO 1.1 (1.0-1.8); ALBUMIN 3.5 gm/dL (3.7-5.3); ALKALINE PHOSPHATASE 47 U/L (34-104); ANION GAP 9.5 (7.0-16.0); BILIRUBIN,TOTAL 0.5 mg/dL (0.3-1.0); BUN - UREA NITROGEN 12 mg/dL (7-25); CARBON DIOXIDE 26.4 mEq/L (21.0-31.0); CHLORIDE 101 mEq/L (98-107); CREATININE - SERUM 0.6 mg/dL (0.6-1.2); GFR AFRICAN-AMERICAN > 60.0 ml/min (>90); GFR NON AFRICAN-AMERICAN > 60.0 ml/min; GLUCOSE 85 mg/dL (70-105); PLATELET COUNT 182 Th/cmm (150-400); POTASSIUM SERUM 3.9 mEq/L (3.5-5.1); SGOT 26 U/L (13-39); SGPT/ALT 40 U/L (7-52); SODIUM SERUM 133 mEq/L (136-145); TOTAL PROTEIN,SERUM 6.7 gm/dL (6.0-8.3)
--- NOTE | 2017-09-15 07:15 | History and Physical ---
History of Present Illness - HPI Chief Complaint: Abdominal pain HPI: 37 y/o female who presents to [facility] ER with left flank pain. Patient has a h/o left nephrolithiasis. Patient has been admitted to the hospital for similar complaints. On this admission patient has left flank pain who has been here on a number of occasions. Patient is here for intractable pain. While in the ER patient had a CT abd/pelvis which revealed the following .... - Radiology Results Results: CT SCAN OF THE ABDOMEN = renal stones with left sided severe hydronephosis ED Assessment - Assessment General Assessment: RENAL STONE WITH OBSTRUCTION urinary tract infection drug abuse Patient underwent initial labwork which revealed the following ..... ED Labs/Radiology/EKG Results - Lab Results Results: Laboratory Tests 09/14/17 08:15 WBC 8.8 RBC 4.58 Hgb 13.2 Hct 40.0 L MCV 87.3 MCH 28.9 MCHC Differential 33.1 RDW 12.9 Plt Count 236 MPV 7.6 Neutrophils % 80.4 H Lymphocytes % 13.0 L Monocytes % 4.1 Eosinophils % 2.4 Basophils % 0.1 Abnormal Lab Results 09/14/17 09/14/17 09/14/17 07:50 07:50 07:50 WBC RBC Hgb Hct MCV MCH MCHC Differential RDW Plt Count MPV Neutrophils % Lymphocytes % Monocytes % Eosinophils % Basophils % Sodium Potassium Chloride Carbon Dioxide Anion Gap BUN Creatinine Est GFR ( Amer) Est GFR (Non-Af Amer) BUN/Creatinine Ratio Glucose Calcium Total Bilirubin AST ALT Alkaline Phosphatase Total Protein Albumin Globulin Albumin/Globulin Ratio Urine Source CLEAN C Urine Color YELLOW Urine Clarity CLOUDY H Urine pH 7.0 Ur Specific [place] 1.020 Urine Protein 100 H Urine Glucose (UA) NEGATIVE Urine Ketones NEGATIVE Urine Blood LARGE H Urine Nitrate POSITIVE H Urine Bilirubin NEGATIVE Urine Urobilinogen 0.2 Ur Leukocyte Esterase LARGE H Urine RBC 25-50 H Urine WBC >100 H Ur Epithelial Cells FEW Urine Bacteria MANY H Urine Test NEGATIVE Urine Opiates Screen POSITIVE H Urine Methadone Screen NEGATIVE Ur Barbiturates Screen NEGATIVE Ur Tricyclics Screen NEGATIVE Ur Phencyclidine Scrn NEGATIVE Amphetamines Screen POSITIVE H U Methamphetamines Scrn POSITIVE H U Benzodiazepines Scrn NEGATIVE U Cocaine Metab Screen NEGATIVE U Cannabinoids Screen POSITIVE H 09/14/17 09/14/17 08:15 08:15 WBC 8.8 RBC 4.58 Hgb 13.2 Hct 40.0 L MCV 87.3 MCH 28.9 MCHC Differential 33.1 RDW 12.9 Plt Count 236 MPV 7.6 Neutrophils % 80.4 H Lymphocytes % 13.0 L Monocytes % 4.1 Eosinophils % 2.4 Basophils % 0.1 Sodium 134 L Potassium 3.8 Chloride 101 Carbon Dioxide 25.9 Anion Gap 10.9 BUN 10 Creatinine 0.7 Est GFR ( Amer) > 60.0 Est GFR (Non-Af Amer) > 60.0 BUN/Creatinine Ratio 14.3 Glucose 109 H Calcium 9.4 Total Bilirubin 0.5 AST 28 ALT 46 Alkaline Phosphatase 44 Total Protein 7.5 Albumin 3.9 Globulin 3.6 Albumin/Globulin Ratio 1.1 Urine Source Urine Color Urine Clarity Urine pH Ur Specific [place] Urine Protein Urine Glucose (UA) Urine Ketones Urine Blood Urine Nitrate Urine Bilirubin Urine Urobilinogen Ur Leukocyte Esterase Urine RBC Urine WBC Ur Epithelial Cells Urine Bacteria Urine Test Urine Opiates Screen Urine Methadone Screen Ur Barbiturates Screen Ur Tricyclics Screen Ur Phencyclidine Scrn Amphetamines Screen U Methamphetamines Scrn U Benzodiazepines Scrn U Cocaine Metab Screen U Cannabinoids Screen Patient was subsequently admitted for further evaluation and treatment. Vital Signs: Last Vital Signs Temp 97.8 F 09/15/17 04:00 Pulse 90 09/15/17 04:00 Resp 19 09/15/17 04:00 BP 132/77 09/15/17 04:00 Pulse Ox 99 09/15/17 04:00 Past Medical History Cardiovascular: Report: CAD Pulmonary: Report: No Pertinent Hx [employer]: Report: No Pertinent Hx GI: Report: No Pertinent Hx Psych: Report: No Pertinent Hx Musculoskeletal: Report: No Pertinent Hx Rheumatologic: Report: No pertinent Hx Infectious Disease: Report: No Pertinent Hx Renal/: Report: Other (nephrolithiasis) Endocrine: Report: No Pertinent Hx Dermatology: Report: No Pertinent Hx - Past Surgical History Past Surgical History: Other (left ureteral stent for kidney, lithotripsy) Family Medical History - Family Member Mother History Unknown: Yes Ethnicity: Non- Living Status: Still Living Hx Family Cancer: No Hx Family Coronary Artery Disease: No Hx Family Congestive Heart Failure: No Hx Family Hypertension: No Hx Family Stroke: No Hx Family Diabetes: No Hx Family Seizures: No Hx Family Dementia: No Hx Family AIDS: No Hx Family HIV: No Hx Family COPD: No Hx Family Hepatitis: No Hx Family Psychiatric Problems: No Hx Family Tuberculosis: No father History Unknown: Yes Social History Smoke: 1 pack per day Alcohol: None Drugs: Marijuana Lives: With Family Domestic Violence: Negative - Medications Home Medications: Home Medication Medication Instructions Recorded Type Antihistamine (Unknown) 1 tab PO PRN PRN 09/14/17 History Hydrocodone/Acetaminophen [Vicodin 1 tab PO PRN PRN 09/14/17 History 5-300 mg Tablet] Unknown Antibiotic 1 tab PO DAILY 09/14/17 History - Allergies Allergies/Adverse Reactions: Allergies Allergy/AdvReac Type Severity Reaction Status Date / Time Sulfa (Sulfonamide Allergy Verified 08/14/15 00:06 Antibiotics) Review of Systems - Review of Systems Constitutional: Report: No Significant Eyes: Report: No Significant ENT: Report: No Significant Respiratory: Report: No Significant Cardiovascular: Report: No Significant Gastrointestinal: Report: No Significant Genitourinary: Report: No Significant Musculoskeletal: Report: Other (left flank pain) Skin: Report: No Significant Neurological: Report: No Significant Physical Exam - Physical Exam HEENT: Report: Ears Nose Throat within normal limits, Pharnyx within normal limits Neck: Report: Within normal limits Cardiovascular Systems: Report: +s1/s2 noted, Regular, Rate and Rhythm Respiratory: Report: Breath Sounds are within normal limits Abdomen: Report: Non-tender to palpation, Other (left flank pain) Back: Report: Inspection of back is within normal limits. Extremities: Report: Non-tender to palpation. Skin: Report: Color of skin is within normal limits Neuro/Psych: Report: Mood affect is within normal limits - Lab Results All Lab Results last 24 hours: Laboratory Results - last 24 hr 09/14/17 09/14/17 09/14/17 07:50 07:50 07:50 WBC RBC Hgb Hct MCV MCH MCHC Differential RDW Plt Count MPV Neutrophils % Lymphocytes % Monocytes % Eosinophils % Basophils % Sodium Potassium Chloride Carbon Dioxide Anion Gap BUN Creatinine Est GFR ( Amer) Est GFR (Non-Af Amer) BUN/Creatinine Ratio Glucose Calcium Total Bilirubin AST ALT Alkaline Phosphatase Total Protein Albumin Globulin Albumin/Globulin Ratio Urine Source CLEAN C Urine Color YELLOW Urine Clarity CLOUDY H Urine pH 7.0 Ur Specific [place] 1.020 Urine Protein 100 H Urine Glucose (UA) NEGATIVE Urine Ketones NEGATIVE Urine Blood LARGE H Urine Nitrate POSITIVE H Urine Bilirubin NEGATIVE Urine Urobilinogen 0.2 Ur Leukocyte Esterase LARGE H Urine RBC 25-50 H Urine WBC >100 H Ur Epithelial Cells FEW Urine Bacteria MANY H Urine Test NEGATIVE Urine Opiates Screen POSITIVE H Urine Methadone Screen NEGATIVE Ur Barbiturates Screen NEGATIVE Ur Tricyclics Screen NEGATIVE Ur Phencyclidine Scrn NEGATIVE Amphetamines Screen POSITIVE H U Methamphetamines Scrn POSITIVE H U Benzodiazepines Scrn NEGATIVE U Cocaine Metab Screen NEGATIVE U Cannabinoids Screen POSITIVE H 09/14/17 09/14/17 09/15/17 08:15 08:15 04:25 WBC 8.8 8.0 RBC 4.58 4.79 Hgb 13.2 13.8 Hct 40.0 L 42.2 MCV 87.3 88.0 MCH 28.9 28.7 MCHC Differential 33.1 32.6 RDW 12.9 12.7 Plt Count 236 182 D MPV 7.6 8.1 Neutrophils % 80.4 H 70.0 Lymphocytes % 13.0 L 19.8 L Monocytes % 4.1 5.5 Eosinophils % 2.4 2.9 Basophils % 0.1 1.8 Sodium 134 L Potassium 3.8 Chloride 101 Carbon Dioxide 25.9 Anion Gap 10.9 BUN 10 Creatinine 0.7 Est GFR ( Amer) > 60.0 Est GFR (Non-Af Amer) > 60.0 BUN/Creatinine Ratio 14.3 Glucose 109 H Calcium 9.4 Total Bilirubin 0.5 AST 28 ALT 46 Alkaline Phosphatase 44 Total Protein 7.5 Albumin 3.9 Globulin 3.6 Albumin/Globulin Ratio 1.1 Urine Source Urine Color Urine Clarity Urine pH Ur Specific [place] Urine Protein Urine Glucose (UA) Urine Ketones Urine Blood Urine Nitrate Urine Bilirubin Urine Urobilinogen Ur Leukocyte Esterase Urine RBC Urine WBC Ur Epithelial Cells Urine Bacteria Urine Test Urine Opiates Screen Urine Methadone Screen Ur Barbiturates Screen Ur Tricyclics Screen Ur Phencyclidine Scrn Amphetamines Screen U Methamphetamines Scrn U Benzodiazepines Scrn U Cocaine Metab Screen U Cannabinoids Screen 09/15/17 04:25 WBC RBC Hgb Hct MCV MCH MCHC Differential RDW Plt Count MPV Neutrophils % Lymphocytes % Monocytes % Eosinophils % Basophils % Sodium 133 L Potassium 3.9 Chloride 101 Carbon Dioxide 26.4 Anion Gap 9.5 BUN 12 Creatinine 0.6 Est GFR ( Amer) > 60.0 Est GFR (Non-Af Amer) > 60.0 BUN/Creatinine Ratio 20.0 Glucose 85 Calcium 9.0 Total Bilirubin 0.5 AST 26 ALT 40 Alkaline Phosphatase 47 Total Protein 6.7 Albumin 3.5 L Globulin 3.2 Albumin/Globulin Ratio 1.1 Urine Source Urine Color Urine Clarity Urine pH Ur Specific [place] Urine Protein Urine Glucose (UA) Urine Ketones Urine Blood Urine Nitrate Urine Bilirubin Urine Urobilinogen Ur Leukocyte Esterase Urine RBC Urine WBC Ur Epithelial Cells Urine Bacteria Urine Test Urine Opiates Screen Urine Methadone Screen Ur Barbiturates Screen Ur Tricyclics Screen Ur Phencyclidine Scrn Amphetamines Screen U Methamphetamines Scrn U Benzodiazepines Scrn U Cocaine Metab Screen U Cannabinoids Screen - Assessment Assessment: Current Active Problems Problem Status Onset ABDOMINAL PAIN WITH FETID URINE Acute intractable abdominal pain pyelonphretitis cystitis left flank pain Left nephrolithiasis left ureteral stent CAD +UDS hydronephrosis - Plan Plan: pain meds IV antibiotics urological eval.
[2017-09-15] MEDS: Hydrocodone/APAP 5mg/325mg Tab PO PRN (08:58)
[2017-09-15] MEDS ORDERED: Levofloxacin 750mg/150mL 750 MG/150 ML BAG IV SCH (09:00)
--- NOTE | 2017-09-15 10:21 | Diagnostic Imaging Report ---
Renal ultrasound HISTORY: Left flank pain. COMPARISON: CT abdomen and pelvis on 09/14/2017 Technique: Sonography of the kidneys and urinary bladder was performed in multiple planes. FINDINGS: The right kidney measures 13.2 x 4.6 cm. Extrarenal right renal pelvis versus less likely right renal cyst is noted. The left kidney measures 14.3 x 7.3 cm demonstrating severe hydronephrosis with debris within the collecting system. Patient's left-sided nephroureteral stent is not well-visualized. Left renal stones are suspected. Echogenic focus is seen within the urinary bladder which may correspond to patient's left nephroureteral stent and possible small stones. Mild urinary bladder wall thickening is noted. IMPRESSION: Severe left-sided hydronephrosis. Please refer to recent CT exam for further details. Echogenic foci size with the left kidney measures which may represent renal stones when compared to recent CT exam. There is also debris within the left renal collecting system. Infectious or inflammatory process cannot be excluded. Echogenic focus within the urinary bladder which may represent patient's double-J nephroureteral stent. There may also be small left urinary bladder stones. Right renal extra-renal pelvis versus cyst Mild increased size of both kidneys. Mild urinary bladder wall thickening.
== END 2017-09-15 13:10 | disposition home or self-care (01) | DRG 463 ==
LOC: ER 07:48 → MSI 14:15
PROVIDERS: ADMIT Family Medicine; ATTEND Family Medicine
DX: N13.6 Pyonephrosis (principal); F17.210 Nicotine dependence, cigarettes, uncomplicated; I25.10 Atherosclerotic heart disease of native coronary artery without angina pectoris; F31.9 Bipolar disorder, unspecified; F19.10 Other psychoactive substance abuse, uncomplicated; Z88.2 Allergy status to sulfonamides
CPT/HCPCS: 36415-UA; 76770-TC; 80053-TC; 80307; 81001-TC; 81025-TC; 85025-TC; 87086-90; 96374; J0696; J1956; J2060